=== PATIENT | male | born 1980 | race Caucasian/White ===

== ENCOUNTER 2017-08-16 15:30 | Inpatient (IN) | payer OTHER ==
[2017-08-16 17:17] VITALS: BMI 27.1
--- NOTE | 2017-08-16 20:20 | HP ---
Admission [facility] Chief Complaint: Benzodiazepine dependence seeking admission to rehab Allergies/Adverse Reactions: Allergies Allergy/AdvReac Type Severity Reaction Status Date / Time acetaminophen [From Tylenol] Allergy Severe Verified 08/16/17 18:40 Fish Containing Products Allergy Severe Swelling Verified 08/16/17 18:40 buprenorphine [From Suboxone] Allergy Intermediate Verified 08/16/17 18:40 naloxone [From Suboxone] Allergy Intermediate Verified 08/16/17 18:40 History of Present Illness: 37 years old with 20 years history of benzodiazepine dependence is seeking admission to detox. Patient has been to previous detox at [facility] in [facility] and reports 18 months of sobriety. She has medical history of Multiple Sclerosis , GERD, anxiety and depression. He denies suicide attempt and suicidal ideation at this time. Patient is on methadone 70 mg at [facility]. LDM is today. Dose is to be confirmed by the nurse. This is first admission to [facility]. Exam Limitations: No Limitations - Ebola screening Have you traveled outside of the country in the last 21 days: No Have you had contact with anyone from an Ebola affected area: No Have you been sick,other than usual withdrawal symptoms: No Do you have a fever: No - Review of Systems Constitutional: No Symptoms Reported EENT: reports: No Symptoms Reported Respiratory: reports: No Symptoms reported Cardiac: reports: No Symptoms Reported GI: reports: No Symptoms Reported : reports: No Symptoms Reported Musculoskeletal: reports: No Symptoms Reported Integumentary: reports: No Symptoms Reported Neuro: reports: Tremors Endocrine: reports: No Symptoms Reported Hematology: reports: No Symptoms Reported Psychiatric: reports: No Sypmtoms Reported, Orientated x3 Other Systems: Reviewed and Negative Patient History - Patient Medical History Hx Anemia: No Hx Asthma: No Hx Chronic Obstructive Pulmonary Disease (COPD): No Hx Cancer: No Hx Cardiac Disorders: No Hx Congestive Heart Failure: No Hx Hypertension: No Hx Hypercholesterolemia: No Hx Pacemaker: No HX Cerebrovascular Accident: No Hx Seizures: No Hx Dementia: No Hx Diabetes: No Hx Gastrointestinal Disorders: Yes (GERD - not on medication) Hx Liver Disease: No Hx Genitourinary Disorders: No Hx Sexually Transmitted Disorders: No Hx Renal Disease (ESRD): No Hx Thyroid Disease: No Hx Human Immunodeficiency Virus (HIV): No (Negative 2016) Hx Hepatitis C: No Hx Depression: Yes (Wellbutrin) Hx Suicide Attempt: No (Denies suicide attempt and suicidal ideation at this time) Hx Bipolar Disorder: No Hx Schizophrenia: No Other Medical History: Anxiety, Mulltiple Sclerosis - Not on medication - Patient Surgical History Past Surgical History: No Hx Neurologic Surgery: No Hx Cataract Extraction: No Hx Cardiac Surgery: No Hx Lung Surgery: No Hx Abdominal Surgery: No Hx Appendectomy: No Hx Cholecystectomy: No Hx Genitourinary Surgery: No Hx Orthopedic Surgery: No Other Surgical History: Reconstructive surgery to face, arm and elbow in 1999, Anesthesia Reaction: No - PPD History Previous Implant?: Yes (PPD POSITIVE) Documented Results: Positive w/o proof Implanted On Prior [facility] Admission?: No PPD to be Administered?: No - Reproductive History Patient is a Female of Child Bearing Age (11 -55 yrs old): No (MALE) - Smoking Cessation Smoking history: Current every day smoker Have you smoked in the past 12 months: Yes Aproximately how many cigarettes per day: 5 Hx Chewing Tobacco Use: No Initiated information on smoking cessation: Yes 'Breaking Loose' booklet given: 08/16/17 - Substance & Tx. History Hx Alcohol Use: No Hx Substance Use: Yes Substance Use Type: Cocaine, Heroin, Marijuana, Tranquilizers Hx Substance Use Treatment: Yes ([facility] in [facility]) - Substances Abused Benzodiazepine (Klonopin) Route: Oral Frequency: Daily Amount used: 8-14MG Age of first use: 19 Date of Last Use: 08/16/17 Marijuana/Hashish Route: Smoking Frequency: Daily Amount used: $20 Age of first use: 9 Date of Last Use: 08/16/17 Family Disease History - Family Disease History Family History: Denies (Patient reports that he was adopted) Admission Physical Exam BHS - Vital Signs Vital Signs: Vital Signs - 24 hr 08/16/17 17:12 Temperature 97.2 F L Pulse Rate 98 H Respiratory 18 Rate Blood Pressure 142/84 - Physical General Appearance: Yes: Nourished, Appropriately Dressed HEENTM: Yes: EOMI, Normal ENT Inspection, Normocephalic, Normal Voice, ODALYS Respiratory: Yes: Lungs Clear, Normal Breath Sounds, No Respiratory Distress Neck: Yes: Supple Breast: Yes: Breast Exam Deferred Cardiology: Yes: Regular Rhythm, Regular Rate Abdominal: Yes: Normal Bowel Sounds, Soft Genitourinary: Yes: Within Normal Limits Back: Yes: Normal Inspection Musculoskeletal: Yes: Within Normal Limits Extremities: Yes: Normal Inspection Neurological: Yes: Alert, Normal Mood/Affect Integumentary: Yes: Warm Lymphatic: Yes: Within Normal Limits - Diagnostic (1) Nicotine dependence Current Visit: Yes Status: Chronic (2) Multiple sclerosis Current Visit: Yes Status: Chronic (3) Depression Current Visit: Yes Status: Chronic Qualifiers: Depression Type: unspecified Qualified Code(s): F32.9 - Major depressive disorder, single episode, unspecified (4) Anxiety Current Visit: Yes Status: Chronic (5) GERD (gastroesophageal reflux disease) Current Visit: Yes Status: Chronic (6) Benzodiazepine dependence Current Visit: Yes Status: Chronic Cleared for Admission [facility] - Detox or Rehab [facility] Level of Care: Observation Bed Claeared for Rehab Admission: Yes [facility] Breath Alcohol Content Breath Alcohol Content: 0 Urine Drug Screen - Results Drug Screen Negative: No Urine Drug Screen Results: THC-Marijuana, TAMARA-Cocaine, BZO-Benzodiazepines, MTD- Methadone
[2017-08-16] MEDS ORDERED: diazePAM 5 MG TABLET PO PRN (20:31)
[2017-08-16] MEDS ORDERED: IBUPROFEN 400 MG TABLET (FP) PO PRN (20:31)
[2017-08-16] MEDS ORDERED: MENTHOL/PHENOL 1 EACH UD MM PRN ×2 (20:31→23:05)
[2017-08-16] MEDS ORDERED: NICOTINE POLACRILEX 2 MG GUM BUC PRN (20:31)
[2017-08-16] MEDS ORDERED: LOPERAMIDE HCL 2 MG CAPSULE PO PRN ×2 (20:31→23:05)
[2017-08-16] MEDS ORDERED: guaiFENesin/D-METHORPHAN HB 10 ML UNIT-DOSE CUPS PO PRN ×2 (20:31→23:05)
[2017-08-16] MEDS ORDERED: MAGNESIUM HYDROX 2400MG/30ML ORAL SUSPENSION 30 ML CUP PO PRN ×2 (20:31→23:05)
[2017-08-16] MEDS ORDERED: MAGNESIUM CITRATE 300 ML BOTTLE PO PRN ×2 (20:31→23:05)
[2017-08-16] MEDS ORDERED: P-EPHED 60MG/TRIPROLIDI 2.5MG TABLET PO PRN ×2 (20:31→23:05)
[2017-08-16] MEDS ORDERED: ACETAMINOPHEN 325 MG TABLET (FP) PO PRN ×2 (20:31→23:05)
[2017-08-16] MEDS ORDERED: MAG HYDROX/AL HYDROX/SIMETH 30 ML UNIT-DOSE CUP PO PRN ×2 (20:31→23:05)
[2017-08-16] MEDS ORDERED: diazePAM 5 MG TABLET PO ONE (21:00)
[2017-08-16] MEDS ORDERED: THIAMINE HCL 100 MG TABLET (FP) PO SCH (22:00)
[2017-08-16] MEDS ORDERED: diazePAM 5 MG TABLET PO SCH (22:00)
[2017-08-16] MEDS ORDERED: MELATONIN 5 MG TABLETS PO PRN ×2 (22:00)
[2017-08-16] MEDS ORDERED: hydrOXYzine PAMOATE 50 MG CAPSULE (FP) PO ONE (23:45)
--- NOTE | 2017-08-17 09:02 | EKG ---
Test Reason : Blood Pressure : / mmHG Vent. Rate : 083 BPM Atrial Rate : 083 BPM P-R Int : 152 ms QRS Dur : 092 ms QT Int : 416 ms P-R-T Axes : 067 064 042 degrees QTc Int : 488 ms NORMAL SINUS RHYTHM PROLONGED QT ABNORMAL ECG NO PREVIOUS ECGS AVAILABLE Confirmed by CATIE BLEDSOE, ALEN ([id number]) on 08/17/2017 9:01:21 AM Referred By: Confirmed By:ALEN HADDAD MD
[2017-08-17] MEDS ORDERED: NICOTINE 14 MG/24 HOURS TOPICAL PATCH TD SCH (10:00)
[2017-08-17] MEDS ORDERED: PRENATAL VITAMINS W/ FOLIC ACID TABLET (FP) PO SCH (10:00)
--- NOTE | 2017-08-17 11:07 | PN ---
[facility] Progress Note Note: Pt states that he needs to be detoxed from Benzo and that he is in withdrawal from Benzo. Urine was positive at admission for benzo and methadone. Vital Signs - 24 hr 08/16/17 08/16/17 08/17/17 17:12 23:00 03:30 Temperature 97.2 F L 98.1 F Pulse Rate 98 H 86 Respiratory 18 18 18 Rate Blood Pressure 142/84 127/78 08/17/17 06:43 Temperature 98.3 F Pulse Rate 89 Respiratory 18 Rate Blood Pressure 111/53 CIWA score of 10. Pt is transferred to detox for Benzo taper and will start methadone at 30mg- pt is in an MAT- 70mg/day. Will get confirmation tomorrow.
[2017-08-17] MEDS ORDERED: diazePAM 5 MG TABLET PO ONE (11:28)
--- NOTE | 2017-08-17 11:45 | PN ---
[facility] CIWA - CIWA Score Nausea/Vomitin-No Nausea/No Vomiting Muscle Tremors: None Anxiety: 4-Mod. Anxious/Guarded Agitation: 4-Moderately Restless Paroxysmal Sweats: 2 Orientation: 0-Oriented Tacttile Disturbances: 0-None Auditory Disturbances: 0-None Visual Disturbances: 0-None Headache: 0-None Present CIWA-Ar Total Score: 10
[2017-08-17] MEDS ORDERED: METHADONE HCL 10 MG TABLET (FOR DETOX USE ONLY) PO ONE (11:48)
[2017-08-17] MEDS: PRENATAL VITAMINS W/ FOLIC ACID TABLET (FP) PO SCH (11:51)
[2017-08-17] MEDS: diazePAM 5 MG TABLET PO SCH ×2 (13:15→22:01)
[2017-08-17] MEDS: diazePAM 5 MG TABLET PO PRN ×2 (15:31→19:22)
--- NOTE | 2017-08-17 16:08 | PN ---
[facility] Progress Note Note: Received patient from Rehab (patient originally admitted for Rehab, then transferred to Detox unit due to the fact that he is currently experiencing significant withdrawal symptoms). VS Stable. Patient reports Tremors, Body Aches , Anxiety, Sweating, and Interrupted Sleep. Patient A & O X 3, observed ambulating on unit unassisted. Patient being treated with Valium Detox Regimen. Cuba Ptahak NP
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
[2017-08-17 17:36] LABS: URINE APPEARANCE CLEAR; URINE BILIRUBIN NEGATIVE (<2.0 mg/dL); URINE COLOR YELLOW; URINE GLUCOSE (UA) NEGATIVE (NEGATIVE); URINE KETONE NEGATIVE (NEGATIVE); URINE LEUK ESTERASE NEGATIVE (NEGATIVE); URINE NITRITE NEGATIVE (NEGATIVE); URINE PROTEIN NEGATIVE (NEGATIVE); URINE UROBILINOGEN NEGATIVE mg/dL (0.2-1.0)
[2017-08-17] MEDS: hydrOXYzine PAMOATE 50 MG CAPSULE (FP) PO PRN (17:50)
[2017-08-17] MEDS: THIAMINE HCL 100 MG TABLET (FP) PO SCH (22:00)
[2017-08-17] MEDS: ZOLPIDEM TARTRATE 10 MG TABLET (PARK CARE ONLY) PO PRN (22:00)
[2017-08-18] MEDS: diazePAM 5 MG TABLET PO PRN ×4 (00:35→20:21)
[2017-08-18] MEDS: hydrOXYzine PAMOATE 50 MG CAPSULE (FP) PO PRN (03:10)
[2017-08-18] MEDS: diazePAM 5 MG TABLET PO SCH ×3 (06:52→22:07)
[2017-08-18] MEDS ORDERED: diazePAM 5 MG TABLET PO SCH (10:00)
[2017-08-18] MEDS: PRENATAL VITAMINS W/ FOLIC ACID TABLET (FP) PO SCH (10:17)
[2017-08-18] MEDS ORDERED: METHADONE HCL 10 MG TABLET PO SCH (11:45)
--- NOTE | 2017-08-18 11:47 | PN ---
S CIWA - CIWA Score Nausea/Vomitin-No Nausea/No Vomiting Muscle Tremors: 3 Anxiety: 5 Agitation: 5 Paroxysmal Sweats: 3 Orientation: 0-Oriented Tacttile Disturbances: 1-Very Mild Itch/Numbness Auditory Disturbances: 0-None Visual Disturbances: 0-None Headache: 0-None Present CIWA-Ar Total Score: 17 [facility] Progress Note (SOAP) Subjective: Body Aches, Sweating, Anxious, Agitated. Objective: PATIENT A & O X 3, OBSERVED AMBULATING ON UNIT. NO ACUTE DISTRESS. 08/18/17 11:44 Vital Signs Temperature 97 F L 08/18/17 09:25 Pulse Rate 86 08/18/17 09:25 Respiratory Rate 20 08/18/17 09:25 Blood Pressure 151/81 08/18/17 09:25 O2 Sat by Pulse Oximetry (%) Laboratory Tests 08/17/17 16:45 Urine Color Yellow Urine Appearance Clear Urine pH 5.0 Ur Specific [place] 1.024 Urine Protein Negative Urine Glucose (UA) Negative Urine Ketones Negative Urine Blood Negative Urine Nitrite Negative Urine Bilirubin Negative Urine Urobilinogen Negative Ur Leukocyte Esterase Negative UA RESULTS NOTED. CBC, CMP, RPR RESULTS PENDING. Assessment: 08/18/17 11:46 WITHDRAWAL SYMPTOMS. Plan: CONTINUE DETOX. CLONIDINE, 0.1 MG PO X 1 FOR SEVERE WITHDRAWAL SYMPTOMS AND FOR ELEVATED BP.
[2017-08-18] MEDS ORDERED: cloNIDine HCL 0.1 MG TABLET PO ONE (11:55)
[2017-08-18] MEDS ORDERED: METHADONE HCL 10 MG TABLET ONE (12:20)
[2017-08-18] MEDS ORDERED: METHADONE HCL 40 MG DISPERSABLE TABLET ONE (12:20)
[2017-08-18] MEDS: METHADONE 40 MG, METHADONE 30 MG PO SCH (12:22)
[2017-08-18 15:57] LABS: ALBUMIN 3.6 g/dl (3.4-5.0); ALK PHOS 86 U/L (45-117); ANION GAP 7 (8-16); BILIRUBIN,TOTAL 0.5 mg/dL (0.2-1.0); BLOOD UREA NITROGEN 22 mg/dL (7-18); CALCIUM 8.7 mg/dL (8.5-10.1); CHLORIDE 104 mmol/L (98-107); CO2 30 mmol/L (21-32); CREATININE 0.9 mg/dL (0.7-1.3); GLUCOSE,RANDOM 83 mg/dL (74-106); POTASSIUM 4.2 mmol/L (3.5-5.1); SGOT/AST 30 U/L (15-37); SGPT/ALT 51 U/L (12-78); SODIUM 141 mmol/L (136-145); TOT PROT 7.2 g/dl (6.4-8.2)
[2017-08-18 16:02] LABS: HEMATOCRIT 39.8 % (35.4-49); HEMOGLOBIN 13.2 GM/dL (11.7-16.9); MCH 29.6 pg (25.7-33.7); MCHC 33.1 g/dl (32.0-35.9); MEAN CELL VOLUME 89.5 fl (80-96); PLATELET COUNT 274 K/MM3 (134-434); RBC 4.45 M/mm3 (4.00-5.60); RDW 13.2 % (11.9-15.9); WHITE BLOOD COUNT 4.4 K/mm3 (4.0-10.0)
[2017-08-18] MEDS: THIAMINE HCL 100 MG TABLET (FP) PO SCH (22:07)
[2017-08-18] MEDS: ZOLPIDEM TARTRATE 10 MG TABLET (PARK CARE ONLY) PO PRN (22:08)
--- NOTE | 2017-08-19 | DS ---
[facility] Detox Discharge Summary Admission Date: 08/16/17 Discharge Date: 08/19/17 - History Present History: Sedative Dependence - Physical Exam Results Vital Signs: Vital Signs Temperature 97 F L 08/18/17 22:03 Pulse Rate 82 08/18/17 22:03 Respiratory Rate 18 08/18/17 22:03 Blood Pressure 115/66 08/18/17 22:03 O2 Sat by Pulse Oximetry (%) Pertinent Admission Physical Exam Findings: Laboratory Last Values WBC 4.4 K/mm3 (4.0-10.0) 08/18/17 08:50 RBC 4.45 M/mm3 (4.00-5.60) 08/18/17 08:50 Hgb 13.2 GM/dL (11.7-16.9) 08/18/17 08:50 Hct 39.8 % (35.4-49) 08/18/17 08:50 MCV 89.5 fl (80-96) 08/18/17 08:50 MCH 29.6 pg (25.7-33.7) 08/18/17 08:50 MCHC 33.1 g/dl (32.0-35.9) 08/18/17 08:50 RDW 13.2 % (11.9-15.9) 08/18/17 08:50 Plt Count 274 K/MM3 (134-434) 08/18/17 08:50 MPV 8.0 fl (7.5-11.1) 08/18/17 08:50 Sodium 141 mmol/L (136-145) 08/18/17 08:50 Potassium 4.2 mmol/L (3.5-5.1) 08/18/17 08:50 Chloride 104 mmol/L (98-107) 08/18/17 08:50 Carbon Dioxide 30 mmol/L (21-32) 08/18/17 08:50 Anion Gap 7 (8-16) L 08/18/17 08:50 BUN 22 mg/dL (7-18) H 08/18/17 08:50 Creatinine 0.9 mg/dL (0.7-1.3) 08/18/17 08:50 Creat Clearance w eGFR > 60 (>60) 08/18/17 08:50 Random Glucose 83 mg/dL (74-106) 08/18/17 08:50 Calcium 8.7 mg/dL (8.5-10.1) 08/18/17 08:50 Total Bilirubin 0.5 mg/dL (0.2-1.0) 08/18/17 08:50 AST 30 U/L (15-37) 08/18/17 08:50 ALT 51 U/L (12-78) 08/18/17 08:50 Alkaline Phosphatase 86 U/L (45-117) 08/18/17 08:50 Total Protein 7.2 g/dl (6.4-8.2) 08/18/17 08:50 Albumin 3.6 g/dl (3.4-5.0) 08/18/17 08:50 Urine Color Yellow 08/17/17 16:45 Urine Appearance Clear 08/17/17 16:45 Urine pH 5.0 (5.0-8.0) 08/17/17 16:45 Ur Specific [place] 1.024 (1.001-1.035) 08/17/17 16:45 Urine Protein Negative (NEGATIVE) 08/17/17 16:45 Urine Glucose (UA) Negative (NEGATIVE) 08/17/17 16:45 Urine Ketones Negative (NEGATIVE) 08/17/17 16:45 Urine Blood Negative (NEGATIVE) 08/17/17 16:45 Urine Nitrite Negative (NEGATIVE) 08/17/17 16:45 Urine Bilirubin Negative (<2.0 mg/dL) 08/17/17 16:45 Urine Urobilinogen Negative mg/dL (0.2-1.0) 08/17/17 16:45 Ur Leukocyte Esterase Negative (NEGATIVE) 08/17/17 16:45 Labs noted - Medication Discharge Medications: Ambulatory Orders Bupropion HCl [Wellbutrin Xl -] 150 mg PO HS 08/16/17 Bupropion HCl [Wellbutrin Xl -] 300 mg PO DAILY 08/16/17 Methadone [Dolophine -] 70 mg PO DAILY 08/16/17 - Diagnosis (1) Sedative, hypnotic or anxiolytic dependence with withdrawal, uncomplicated Current Visit: Yes Status: Chronic (2) GERD (gastroesophageal reflux disease) Current Visit: Yes Status: Chronic Qualifiers: Esophagitis presence: esophagitis presence not specified Qualified Code(s) : K21.9 - Gastro-esophageal reflux disease without esophagitis (3) Multiple sclerosis Current Visit: Yes Status: Chronic (4) Nicotine dependence Current Visit: Yes Status: Chronic Qualifiers: Nicotine product type: cigarettes Substance use status: uncomplicated Qualified Code(s): F17.210 - Nicotine dependence, cigarettes, uncomplicated - AMA Did Patient Leave Against Medical Advice: Yes
[2017-08-19] MEDS: diazePAM 5 MG TABLET PO PRN ×5 (00:34→20:51)
[2017-08-19] MEDS ORDERED: diphenhydrAMINE HCL 25 MG CAPSULE (FP) PO ONE (00:47)
[2017-08-19] MEDS: IBUPROFEN 400 MG TABLET (FP) PO PRN ×2 (02:34→22:55)
[2017-08-19] MEDS ORDERED: METHADONE HCL 10 MG TABLET ONE (05:03)
[2017-08-19] MEDS ORDERED: METHADONE HCL 40 MG DISPERSABLE TABLET ONE (05:04)
[2017-08-19] MEDS: METHADONE 40 MG, METHADONE 30 MG PO SCH (06:06)
[2017-08-19] MEDS: diazePAM 5 MG TABLET PO SCH ×2 (10:46→22:27)
[2017-08-19] MEDS: PRENATAL VITAMINS W/ FOLIC ACID TABLET (FP) PO SCH (10:46)
--- NOTE | 2017-08-19 13:59 | PN ---
[facility] CIWA - CIWA Score Nausea/Vomitin-No Nausea/No Vomiting Muscle Tremors: None Anxiety: 5 Agitation: 4-Moderately Restless Paroxysmal Sweats: 3 Orientation: 0-Oriented Tacttile Disturbances: 2-Mild Itch/Numbness/Burn Auditory Disturbances: 0-None Visual Disturbances: 2-Mild Sensitivity Headache: 0-None Present CIWA-Ar Total Score: 16 [facility] Progress Note (SOAP) Subjective: Sweating, Body Aches, Anxious, Agitated. Objective: PATIENT A & O X 3, OBSERVED AMBULATING ON UNIT. NO ACUTE DISTRESS. 08/19/17 14:01 Vital Signs Temperature 96.4 F L 08/19/17 09:12 Pulse Rate 89 08/19/17 09:12 Respiratory Rate 16 08/19/17 09:12 Blood Pressure 126/83 08/19/17 09:12 O2 Sat by Pulse Oximetry (%) Laboratory Tests 08/17/17 08/18/17 08/18/17 16:45 08:50 08:50 WBC 4.4 RBC 4.45 Hgb 13.2 Hct 39.8 MCV 89.5 MCH 29.6 MCHC 33.1 RDW 13.2 Plt Count 274 MPV 8.0 Sodium 141 Potassium 4.2 Chloride 104 Carbon Dioxide 30 Anion Gap 7 L BUN 22 H Creatinine 0.9 Creat Clearance w eGFR > 60 Random Glucose 83 Calcium 8.7 Total Bilirubin 0.5 AST 30 ALT 51 Alkaline Phosphatase 86 Total Protein 7.2 Albumin 3.6 Urine Color Yellow Urine Appearance Clear Urine pH 5.0 Ur Specific [place] 1.024 Urine Protein Negative Urine Glucose (UA) Negative Urine Ketones Negative Urine Blood Negative Urine Nitrite Negative Urine Bilirubin Negative Urine Urobilinogen Negative Ur Leukocyte Esterase Negative RPR Titer 08/18/17 08:50 WBC RBC Hgb Hct MCV MCH MCHC RDW Plt Count MPV Sodium Potassium Chloride Carbon Dioxide Anion Gap BUN Creatinine Creat Clearance w eGFR Random Glucose Calcium Total Bilirubin AST ALT Alkaline Phosphatase Total Protein Albumin Urine Color Urine Appearance Urine pH Ur Specific [place] Urine Protein Urine Glucose (UA) Urine Ketones Urine Blood Urine Nitrite Urine Bilirubin Urine Urobilinogen Ur Leukocyte Esterase RPR Titer Nonreactive LABS NOTED. HCV AB RESULT PENDING. 08/19/17 14:01 Assessment: 08/19/17 14:01 WITHDRAWAL SYMPTOMS. Plan: CONTINUE DETOX. INCREASE DAILY PO FLUID INTAKE.
[2017-08-19] MEDS: ZOLPIDEM TARTRATE 10 MG TABLET (PARK CARE ONLY) PO PRN (22:27)
[2017-08-19] MEDS: THIAMINE HCL 100 MG TABLET (FP) PO SCH (22:27)
[2017-08-20] MEDS: diazePAM 5 MG TABLET PO PRN ×2 (02:00→06:32)
[2017-08-20] MEDS ORDERED: METHADONE HCL 10 MG TABLET ONE (03:30)
[2017-08-20] MEDS ORDERED: METHADONE HCL 40 MG DISPERSABLE TABLET ONE (03:30)
[2017-08-20] MEDS: METHADONE 40 MG, METHADONE 30 MG PO SCH (05:31)
[2017-08-20] MEDS ORDERED: diazePAM 5 MG TABLET PO SCH (10:00)
[2017-08-20] MEDS: PRENATAL VITAMINS W/ FOLIC ACID TABLET (FP) PO SCH (10:13)
[2017-08-20] MEDS: diazePAM 5 MG TABLET PO SCH (10:13)
[2017-08-20 11:00] VITALS: BP 108/71; PULSE 89; TEMP 97
--- NOTE | 2017-08-20 11:15 | PN ---
[facility] Progress Note Note: Psychiatry Attending's note : Called to write script for wellbutrin. Chart reviewed.Medications revisited.Met with patient. Mr Soliz endorses favorable response to the medication. Willing to continue same regimen as an outpatient.Doing well. No side effects reported.Patient made aware of risk of seizures. Script for wellbutrin 150 mg po daily # 30 tablets. [facility]
--- NOTE | 2017-08-20 15:33 | PN ---
[facility] Progress Note (SOAP) Subjective: Body Aches, Sweating, Anxious. Objective: PATIENT A & O X 3, OBSERVED AMBULATING ON UNIT. NO ACUTE DISTRESS. 08/20/17 15:32 Vital Signs Temperature 97.0 F L 08/20/17 10:59 Pulse Rate 89 08/20/17 10:59 Respiratory Rate 20 08/20/17 10:59 Blood Pressure 108/71 08/20/17 10:59 O2 Sat by Pulse Oximetry (%) Laboratory Tests 08/17/17 08/18/17 08/18/17 16:45 08:50 08:50 WBC 4.4 RBC 4.45 Hgb 13.2 Hct 39.8 MCV 89.5 MCH 29.6 MCHC 33.1 RDW 13.2 Plt Count 274 MPV 8.0 Sodium 141 Potassium 4.2 Chloride 104 Carbon Dioxide 30 Anion Gap 7 L BUN 22 H Creatinine 0.9 Creat Clearance w eGFR > 60 Random Glucose 83 Calcium 8.7 Total Bilirubin 0.5 AST 30 ALT 51 Alkaline Phosphatase 86 Total Protein 7.2 Albumin 3.6 Urine Color Yellow Urine Appearance Clear Urine pH 5.0 Ur Specific [place] 1.024 Urine Protein Negative Urine Glucose (UA) Negative Urine Ketones Negative Urine Blood Negative Urine Nitrite Negative Urine Bilirubin Negative Urine Urobilinogen Negative Ur Leukocyte Esterase Negative RPR Titer Hep C Ab Diagnostic Liver Fibrosis Interp 08/18/17 08/19/17 08:50 08:00 WBC RBC Hgb Hct MCV MCH MCHC RDW Plt Count MPV Sodium Potassium Chloride Carbon Dioxide Anion Gap BUN Creatinine Creat Clearance w eGFR Random Glucose Calcium Total Bilirubin AST ALT Alkaline Phosphatase Total Protein Albumin Urine Color Urine Appearance Urine pH Ur Specific [place] Urine Protein Urine Glucose (UA) Urine Ketones Urine Blood Urine Nitrite Urine Bilirubin Urine Urobilinogen Ur Leukocyte Esterase RPR Titer Nonreactive Hep C Ab Diagnostic <0.1 Liver Fibrosis Interp LABS NOTED. Assessment: 08/20/17 15:32 WITHDRAWAL SYMPTOMS. Plan: CONTINUE DETOX.
--- NOTE | 2017-08-20 15:37 | DS ---
[facility] Detox Discharge Summary Admission Date: 08/16/17 Discharge Date: 08/20/17 - History Present History: Sedative Dependence Additional Comments: PATIENT DOES NOT WISH TO STAY TO COMPLETE DETOX REGIMEN. RISKS OF LEAVING DETOX UNIT AGAINST MEDICAL ADVICE AND PRIOR TO COMPLETION OF DETOX REGIMEN EXPLAINED TO PATIENT. PATIENT ADVISED TO GO IMMEDIATELY TO NEAREST ER SHOULD ANY INTOLERABLE DETOX SYMPTOMS DEVELOP AT ANY TIME. PATIENT LEFT DETOX UNIT IN STABLE MEDICAL CONDITION. Pertinent Past History: History of Multiple Sclerosis, G.E.R.D., Nicotine dependence, Insomnia, Anxiety , MMTP, Depression. - Physical Exam Results Vital Signs: Vital Signs Temperature 97.0 F L 08/20/17 10:59 Pulse Rate 89 08/20/17 10:59 Respiratory Rate 20 08/20/17 10:59 Blood Pressure 108/71 08/20/17 10:59 O2 Sat by Pulse Oximetry (%) Pertinent Admission Physical Exam Findings: WITHDRAWAL SYMPTOMS. Laboratory Tests 08/17/17 08/18/17 08/18/17 16:45 08:50 08:50 WBC 4.4 RBC 4.45 Hgb 13.2 Hct 39.8 MCV 89.5 MCH 29.6 MCHC 33.1 RDW 13.2 Plt Count 274 MPV 8.0 Sodium 141 Potassium 4.2 Chloride 104 Carbon Dioxide 30 Anion Gap 7 L BUN 22 H Creatinine 0.9 Creat Clearance w eGFR > 60 Random Glucose 83 Calcium 8.7 Total Bilirubin 0.5 AST 30 ALT 51 Alkaline Phosphatase 86 Total Protein 7.2 Albumin 3.6 Urine Color Yellow Urine Appearance Clear Urine pH 5.0 Ur Specific [place] 1.024 Urine Protein Negative Urine Glucose (UA) Negative Urine Ketones Negative Urine Blood Negative Urine Nitrite Negative Urine Bilirubin Negative Urine Urobilinogen Negative Ur Leukocyte Esterase Negative RPR Titer Hep C Ab Diagnostic Liver Fibrosis Interp 08/18/17 08/19/17 08:50 08:00 WBC RBC Hgb Hct MCV MCH MCHC RDW Plt Count MPV Sodium Potassium Chloride Carbon Dioxide Anion Gap BUN Creatinine Creat Clearance w eGFR Random Glucose Calcium Total Bilirubin AST ALT Alkaline Phosphatase Total Protein Albumin Urine Color Urine Appearance Urine pH Ur Specific [place] Urine Protein Urine Glucose (UA) Urine Ketones Urine Blood Urine Nitrite Urine Bilirubin Urine Urobilinogen Ur Leukocyte Esterase RPR Titer Nonreactive Hep C Ab Diagnostic <0.1 Liver Fibrosis Interp LABS NOTED. - Treatment Hospital Course: Detoxed Safely - Medication Discharge Medications: Ambulatory Orders Bupropion HCl [Wellbutrin Xl -] 150 mg PO HS 08/16/17 Bupropion HCl [Wellbutrin Xl -] 300 mg PO DAILY 08/16/17 Bupropion HCl [Wellbutrin Xl -] 150 mg PO DAILY #30 tab.sr.24h 08/20/17 - Diagnosis (1) Sedative, hypnotic or anxiolytic dependence with withdrawal, uncomplicated Status: Chronic (2) Multiple sclerosis Status: Chronic (3) Nicotine dependence Status: Chronic Qualifiers: Nicotine product type: cigarettes Substance use status: uncomplicated Qualified Code(s): F17.210 - Nicotine dependence, cigarettes, uncomplicated (4) Anxiety Status: Chronic (5) Depression Status: Chronic Qualifiers: Depression Type: unspecified Qualified Code(s): F32.9 - Major depressive disorder, single episode, unspecified (6) GERD (gastroesophageal reflux disease) Status: Chronic Qualifiers: Esophagitis presence: esophagitis presence not specified Qualified Code(s) : K21.9 - Gastro-esophageal reflux disease without esophagitis (7) Substance induced mood disorder Status: Acute (8) Substance-induced sleep disorder Status: Acute - AMA Did Patient Leave Against Medical Advice: Yes (PATIENT DID NOT WISH TO REMAIN TO COMPLETE DETOX REGIMEN.)
[2017-08-21] MEDS ORDERED: diazePAM 5 MG TABLET PO SCH (10:00)
--- NOTE | 2017-08-21 10:19 | EKG ---
Test Reason : Blood Pressure : / mmHG Vent. Rate : 082 BPM Atrial Rate : 082 BPM P-R Int : 136 ms QRS Dur : 092 ms QT Int : 400 ms P-R-T Axes : 058 062 030 degrees QTc Int : 467 ms NORMAL SINUS RHYTHM NORMAL ECG WHEN COMPARED WITH ECG OF 16-AUG-2017 22:16, NO SIGNIFICANT CHANGE WAS FOUND Confirmed by ROBERT LOZA MD ([id number]) on 08/21/2017 10:19:12 AM Referred By: Confirmed By:ROBERT LOZA MD
== END 2017-08-20 12:46 | disposition left against medical advice (07) | DRG 770 ==
LOC: YASAS 15:30 → Y3W 18:07 → Y3N 08-17 11:26
PROVIDERS: ADMIT Psychiatry & Neurology Psychiatry; ATTEND Surgery
PROC: HZ2ZZZZ Detoxification Services for Substance Abuse Treatment (ICD-10-PCS; principal; 2017-08-16)
DX: F13.230 Sedative, hypnotic or anxiolytic dependence with withdrawal, uncomplicated (principal); F17.210 Nicotine dependence, cigarettes, uncomplicated; F41.9 Anxiety disorder, unspecified; F32.9 Major depressive disorder, single episode, unspecified; F19.24 Other psychoactive substance dependence with psychoactive substance-induced mood disorder; F19.282 Other psychoactive substance dependence with psychoactive substance-induced sleep disorder; K21.9 Gastro-esophageal reflux disease without esophagitis; G35 Multiple sclerosis; Z88.8 Allergy status to other drugs, medicaments and biological substances; Z91.018 Allergy to other foods
CPT/HCPCS: 36415; 71046-TC-FY; 80053; 81003; 85027; 86593; 86803; 93005; 93010; J0735

== ENCOUNTER 2017-08-22 17:46 | Emergency (ER) | payer OTHER ==
[2017-08-22 18:13] VITALS: BP 109/69; PULSE 95; TEMP 98.2; BMI 25.9
[2017-08-22] MEDS ORDERED: ASPIRIN 325 MG TABLET PO ONE (22:53)
--- NOTE | 2017-08-22 22:53 | PDOC ---
History of Present Illness - General Chief Complaint: Chest Pain Stated Complaint: CHEST PAIN Time Seen by Provider: 08/22/17 22:29 History Source: Patient Exam Limitations: No Limitations - History of Present Illness Initial Comments: 08/22/17 22:51 37-year-old male with past medical history of MS polysubstance abuse who presents emergency Department with left-sided chest pain starting at approximately 3:00 this afternoon. Patient states he presented to [address] [place] [address] for detox today but was told he could not be admitted as he went AMA last week from detox. Patient states chest pain started while he was attempting to admit himself for detox. Denies any exertional chest pain. Patient also reports right flank pain starting at the same time. He denies any shortness of breath, dizziness, headaches, nausea, vomiting, dysuria, hematuria. Past History - Past Medical History Allergies/Adverse Reactions: Allergies Allergy/AdvReac Type Severity Reaction Status Date / Time acetaminophen [From Tylenol] Allergy Severe Verified 08/22/17 18:10 Fish Containing Products Allergy Severe Swelling Verified 08/22/17 18:10 buprenorphine [From Suboxone] Allergy Intermediate Verified 08/22/17 18:10 naloxone [From Suboxone] Allergy Intermediate Verified 08/22/17 18:10 Home Medications: Ambulatory Orders Unobtainable 08/23/17 Anemia: No Asthma: No Cancer: No Cardiac Disorders: No CVA: No COPD: No CHF: No Dementia: No Diabetes: No GI Disorders: Yes (GERD - not on medication) Disorders: No HTN: No Hypercholesterolemia: No Kidney Stones: No Liver Disease: No Seizures: No Thyroid Disease: No - Surgical History Abdominal Surgery: No Appendectomy: No Cardiac Surgery: No Cholecystectomy: No Lung Surgery: No Neurologic Surgery: No Orthopedic Surgery: No - Reproductive History Testicular Surgery: No - Suicide/Smoking/Psychosocial Hx Smoking History: Current some day smoker Have you smoked in the past 12 months: Yes Number of Cigarettes Smoked Daily: 5 Information on smoking cessation initiated: No 'Breaking Loose' booklet given: 08/16/17 Hx Alcohol Use: No Drug/Substance Use Hx: Yes Substance Use Type: Cocaine, Heroin, Marijuana, Tranquilizers Hx Substance Use Treatment: Yes ([facility] in [facility]) Cardiac Specific PMH - Complaint Specific PMHX Pacemaker: No Review of Systems - Review of Systems Able to Perform ROS?: Yes Is the patient limited Urdu proficient: No Constitutional: No: Symptoms Reported HEENTM: No: Symptoms Reported Respiratory: No: Symptoms reported Cardiac (ROS): Yes: See HPI ABD/GI: No: Symptoms Reported : Yes: See HPI Musculoskeletal: No: Symptoms Reported Integumentary: No: Symptoms Reported Neurological: No: Symptoms reported Endocrine: No: Symptoms Reported Hematologic/Lymphatic: No: Symptoms Reported *Physical Exam - Vital Signs Last Vital Signs Temp Pulse Resp BP Pulse Ox 98.2 F 95 H 19 109/69 98 08/22/17 18:10 08/22/17 18:10 08/22/17 18:10 08/22/17 18:10 08/22/17 18:10 - Physical Exam General Appearance: Yes: Appropriately Dressed. No: Apparent Distress HEENT: positive: Normal ENT Inspection Neck: positive: Trachea midline, Supple Respiratory/Chest: positive: Lungs Clear, Normal Breath Sounds. negative: Respiratory Distress, Accessory Muscle Use Cardiovascular: positive: Regular Rhythm, Regular Rate, S1, S2. negative: Edema , Murmur Gastrointestinal/Abdominal: positive: Normal Bowel Sounds, Soft. negative: Tender Musculoskeletal: positive: Normal Inspection, CVA Tenderness (R). negative: CVA Tenderness (L) Extremity: positive: Normal Inspection Integumentary: positive: Normal Color, Dry, Warm Neurologic: positive: Alert, Normal Response ED Treatment Course - LABORATORY CBC & Chemistry Diagram: 08/23/17 01:25 08/23/17 01:25 - ADDITIONAL ORDERS Additional order review: 08/23/17 01:25 RBC 4.20 MCV 88.1 MCHC 34.0 RDW 13.4 MPV 7.1 L D Neutrophils % 50.3 Lymphocytes % 29.0 Monocytes % 11.9 H Eosinophils % 8.1 H Basophils % 0.7 - RADIOLOGY Radiology Studies Ordered: Category Date Time Status CHEST PA & LAT [RAD] Stat Radiology 08/23/17 02:10 Completed - Medications Given in the ED: ED Medications Discontinued Medications Generic Name Dose Route Start Last Admin Trade Name Freq PRN Reason Stop Dose Admin Aspirin 325 mg 08/22/17 22:53 08/23/17 01:28 Asa - PO 08/22/17 22:54 325 mg ONCE ONE Administration Medical Decision Making - Medical Decision Making 08/22/17 22:55 A/P: 37-year-old male with history of MS and polysubstance abuse with left-sided chest pain and right flank pain starting at 3 PM Chest pain is reproducible over left pectoral Lungs clear to auscultation bilaterally RRR. S1 and S2 present. No murmur, rub or gallop noted. Abdomen with epigastric tenderness Right CVA tenderness Physical exam chest pain is likely musculoskeletal. I will send labs including cardiac profile to rule out ACS. Urinalysis to rule out kidney stone or pyelonephritis. Pyelonephritis is less likely given patient is afebrile presently. EKG, chest x-ray, aspirin 325 mg orally once EKG is interpreted by Dr. bowen and reviewed by me: Sinus rhythm with rate of 78. Normal intervals noted. 08/23/17 03:16 Chest x-rays read by me: Angles clear. Cardiac silhouette is within normal limits. No focal consolidations or infiltrates or present. No significant changes when compared to study performed 08/18/17. Laboratory testing is benign. Physical exam with reproducible chest pain is likely musculoskeletal in nature and not cardiac. 08/23/17 03:48 UA is negative. I'll discharge the patient home to follow-up with his primary doctor. I discussed the physical exam findings, ancillary test results and final diagnoses with the patient. I answered all of the patient's questions. The patient was satisfied with the care received and felt comfortable with the discharge plan and treatment plan. The patient will call their primary care physician within 24 hours to arrange follow-up and will return to the Emergency Department with any new, persistent or worsening symptoms. *DC/Admit/Observation/Transfer Diagnosis at time of Disposition: Atypical chest pain - Discharge Dispostion Disposition: HOME Condition at time of disposition: Stable Decision to Admit order: No - Referrals - Patient Instructions Printed Discharge Instructions: DI for Atypical Chest Pain Additional Instructions: Stop using drugs. Keep well-hydrated Return to her primary doctor for continued evaluation. Return to emergency department for any concerns. - Post Discharge Activity
--- NOTE | 2017-08-22 23:01 | PDOC ---
*Physical Exam - Vital Signs Last Vital Signs Temp Pulse Resp BP Pulse Ox 98.2 F 95 H 19 109/69 98 08/22/17 18:10 08/22/17 18:10 08/22/17 18:10 08/22/17 18:10 08/22/17 18:10 ED Treatment Course - LABORATORY CBC & Chemistry Diagram: 08/23/17 01:25 08/23/17 01:25 Medical Decision Making - Medical Decision Making 08/22/17 23:00 agree with care from VESNA Delgado *DC/Admit/Observation/Transfer Diagnosis at time of Disposition: Atypical chest pain - Discharge Dispostion Disposition: HOME Condition at time of disposition: Stable - Referrals - Patient Instructions Printed Discharge Instructions: DI for Atypical Chest Pain Additional Instructions: Stop using drugs. Keep well-hydrated Return to her primary doctor for continued evaluation. Return to emergency department for any concerns. - Post Discharge Activity
[2017-08-23] MEDS ORDERED: ASPIRIN 325 MG TABLET ONE (01:25)
[2017-08-23 01:35] LABS: BASO % 0.7 % (0-2.0); EOS % 8.1 % (0-4.5); HEMOGLOBIN 12.6 GM/dL (11.7-16.9); MEAN CELL VOLUME 88.1 fl (80-96); MEAN PLT VOLUME 7.1 fl (7.5-11.1); MONO % 11.9 % (3.8-10.2); NEUT % 50.3 % (42.8-82.8); PLATELET COUNT 275 K/MM3 (134-434); RDW 13.4 % (11.9-15.9); WHITE BLOOD COUNT 5.7 K/mm3 (4.0-10.0)
[2017-08-23 01:48] LABS: INR 1.04 (0.82-1.09); PROTHROMBIN TIME (PATIENT) 11.8 SEC (9.7-13.0)
[2017-08-23 01:58] LABS: ALBUMIN 3.5 g/dl (3.4-5.0); ANION GAP 8 (8-16); BILIRUBIN,TOTAL 0.7 mg/dL (0.2-1.0); BLOOD UREA NITROGEN 16 mg/dL (7-18); CALCIUM 8.8 mg/dL (8.5-10.1); CHLORIDE 105 mmol/L (98-107); CO2 29 mmol/L (21-32); GLUCOSE,RANDOM 87 mg/dL (74-106); LIPASE 92 U/L (73-393); MAGNESIUM 2.1 mg/dL (1.8-2.4); POTASSIUM 4.3 mmol/L (3.5-5.1); SGOT/AST 23 U/L (15-37); SGPT/ALT 41 U/L (12-78); SODIUM 142 mmol/L (136-145)
[2017-08-23 02:01] LABS: ALK PHOS 89 U/L (45-117)
[2017-08-23 03:37] LABS: URINE APPEARANCE CLEAR; URINE BILIRUBIN NEGATIVE (<2.0 mg/dL); URINE COLOR LTYELLOW; URINE GLUCOSE (UA) NEGATIVE (NEGATIVE); URINE KETONE NEGATIVE (NEGATIVE); URINE LEUK ESTERASE NEGATIVE (NEGATIVE); URINE NITRITE NEGATIVE (NEGATIVE); URINE PROTEIN NEGATIVE (NEGATIVE); URINE UROBILINOGEN NEGATIVE mg/dL (0.2-1.0)
--- NOTE | 2017-08-24 11:42 | EKG ---
Test Reason : Blood Pressure : / mmHG Vent. Rate : 078 BPM Atrial Rate : 078 BPM P-R Int : 148 ms QRS Dur : 088 ms QT Int : 404 ms P-R-T Axes : 042 069 019 degrees QTc Int : 460 ms NORMAL SINUS RHYTHM NORMAL ECG WHEN COMPARED WITH ECG OF 22-AUG-2017 18:17, NO SIGNIFICANT CHANGE WAS FOUND Confirmed by ALEN HADDAD MD ([id number]) on 08/24/2017 11:41:57 AM Referred By: Confirmed By:ALEN HADDAD MD
--- NOTE | 2017-09-02 12:15 | EKG ---
Test Reason : Blood Pressure : / mmHG Vent. Rate : 083 BPM Atrial Rate : 083 BPM P-R Int : 136 ms QRS Dur : 088 ms QT Int : 380 ms P-R-T Axes : 059 059 048 degrees QTc Int : 446 ms NORMAL SINUS RHYTHM NORMAL ECG WHEN COMPARED WITH ECG OF 17-AUG-2017 15:16, NO SIGNIFICANT CHANGE WAS FOUND Confirmed by ALEN HADDAD MD ([id number]) on 09/02/2017 12:14:38 PM Referred By: Confirmed By:ALEN HADDAD MD
== END 2017-08-23 07:47 | disposition home or self-care (01) ==
LOC: JER 17:46
DX: R07.89 Other chest pain (principal); G35 Multiple sclerosis; F11.10 Opioid abuse, uncomplicated; F13.10 Sedative, hypnotic or anxiolytic abuse, uncomplicated; F14.10 Cocaine abuse, uncomplicated; F12.10 Cannabis abuse, uncomplicated; Z88.8 Allergy status to other drugs, medicaments and biological substances; Z91.018 Allergy to other foods
CPT/HCPCS: 36415; 71046-TC-FY; 80053; 81003; 82550; 83690; 83735; 84484; 85025; 85610; 93005; 93010; 99281-25

== ENCOUNTER 2018-04-15 10:14 | Inpatient (IN) | payer OTHER ==
[2018-04-15 10:32] VITALS: BMI 23.1
--- NOTE | 2018-04-15 10:42 | HP ---
"COWS - Scale Resting Pulse: 1= RI 81-100 Sweatin= Chills/Flushing Restless Observation: 1= Difficult to Sit Still Pupil Size: 0= Normal to Room Light Bone or Joint Aches: 1= Mild Discomfort Runny Nose/ Eye Tearin= Nasal Congestion GI Upset > 30mins: 2= Nausea/Diarrhea Tremor Observation: 2= Slight Tremor Visible Yawning Observation: 1= 1-2x During Session Anxiety or Irritability: 2=Irritable/Anxious Goose Flesh Skin: 3=Piloerection COWS Score: 15 CIWA Score Nausea/Vomitin Muscle Tremors: 4-Moderate,w/Arms Extend Anxiety: 4-Mod. Anxious/Guarded Agitation: 0-Normal Activity Paroxysmal Sweats: 1-Minimal Palms Moist Orientation: 1-Uncertain about Date Tacttile Disturbances: 1-Very Mild Itch/Numbness Auditory Disturbances: 1-Very Mild Visual Disturbances: 1-Very Mild Sensitivity Headache: 2-Mild CIWA-Ar Total Score: 17 - Admission Criteria [facility]AS[facility] Guidelines: Admission for Medically Managed Detox: Requires at least one of the followin. CIWA greater than 12 2. Seizures within the past 24 hours 3. Delirium tremens within the past 24 hours 4. Hallucinations within the past 24 hours 5. Acute intervention needed for co occurring medical disorder 6. Acute intervention needed for co occurring psychiatric disorder 7. Severe withdrawal that cannot be handled at a lower level of care (continued vomiting, continued diarrhea, abnormal vital signs) requiring intravenous medication and/or fluids 8. Patient presents the following: CIWA greater than 12 Admission Criteria Met: Admission criteria met Admission ROS [facility] Chief Complaint: I'm not a druggie, I'm not one of those shitting druggies, I want help Allergies/Adverse Reactions: Allergies Allergy/AdvReac Type Severity Reaction Status Date / Time acetaminophen [From Tylenol] Allergy Severe Verified 04/15/18 10:59 Fish Containing Products Allergy Severe Swelling Verified 04/15/18 10:59 buprenorphine [From Suboxone] Allergy Intermediate Verified 04/15/18 10:59 naloxone [From Suboxone] Allergy Intermediate Verified 04/15/18 10:59 History of Present Illness: 37 yo gentleman here for detox from opiates, alprazolam, also using cocaine and marijuana. Denies seizures or black outs, denies overdose. States he was on methadone program (110mg) until 3 weeks ago when he was discharged 'for bullshit reasons' and relapsed using. Irritable, did not want to answer some questions. Insists he was never prescribed suboxone despite my noting it [place] - states it wasn't him, that he's allergic (hives). Patient states he has been prescribed xanax since he was 19 years old but started abusing it when he couldn't get it by prescription anymore. The Drug Utilization Report below displays all of the controlled substance prescriptions, if any, that your patient has filled in the last twelve months. The information displayed on this report is compiled from pharmacy submissions to the Department, and accurately reflects the information as submitted by the pharmacies. This report was requested by: Eleanor Joel | Reference #: [id number] Others' Prescriptions Patient Name: Sammy Soliz Date: 1980 Address: [address] [place] [address] Sex: Male Rx Written Rx Dispensed Drug Quantity Days Supply Prescriber Name Payment Method Dispenser 09/02/2017 09/02/2017 suboxone 2 mg-0.5 mg sl film 6 3 Shahida Tang MD [facility] 09/02/2017 09/02/2017 chlordiazepoxide 10 mg capsule 6 3 Shahida Tang MD [facility] 08/30/2017 08/30/2017 chlordiazepoxide 10 mg capsule 6 3 [facility] Exam Limitations: Clinical Condition, Other (irritable) - Ebola screening Have you traveled outside of the country in the last 21 days: No (N) Have you had contact with anyone from an Ebola affected area: No Have you been sick,other than usual withdrawal symptoms: No Do you have a fever: No - Review of Systems Constitutional: Chills, Loss of Appetite, Malaise, Changes in sleep, Weakness EENT: reports: Blurred Vision, Nose Congestion Respiratory: reports: No Symptoms reported Cardiac: reports: No Symptoms Reported GI: reports: Diarrhea, Poor Appetite, Indigestion, Abdominal cramping : reports: Dysuria Musculoskeletal: reports: Back Pain, Muscle Pain Integumentary: reports: No Symptoms Reported Neuro: reports: Headache, Tremors, Weakness Endocrine: reports: No Symptoms Reported Hematology: reports: No Symptoms Reported Psychiatric: reports: Judgement Intact, Mood/Affect Appropiate, Agitated, Anxious, other (restless) Other Systems: Reviewed and Negative Patient History - Patient Medical History Hx Anemia: No Hx Asthma: No Hx Chronic Obstructive Pulmonary Disease (COPD): No Hx Cancer: No Hx Cardiac Disorders: No Hx Congestive Heart Failure: No Hx Hypertension: No Hx Hypercholesterolemia: No Hx Pacemaker: No HX Cerebrovascular Accident: No Hx Seizures: No Hx Dementia: No Hx Diabetes: No Hx Gastrointestinal Disorders: Yes (GERD - not on medication) Hx Liver Disease: No Hx Genitourinary Disorders: No Hx Sexually Transmitted Disorders: No Hx Renal Disease (ESRD): No Hx Thyroid Disease: No Hx Human Immunodeficiency Virus (HIV): No (Negative 2016) Hx Hepatitis C: No Hx Depression: Yes (Wellbutrin, never hospitalized, ) Hx Suicide Attempt: No (Denies suicide attempt and suicidal ideation at this time) Hx Bipolar Disorder: No Hx Schizophrenia: No Other Medical History: multiple sclerosis diagnosed 2016 - no treatment vision changes left eye - Patient Surgical History Past Surgical History: No Hx Neurologic Surgery: No Hx Cataract Extraction: No Hx Cardiac Surgery: No Hx Lung Surgery: No Hx Abdominal Surgery: No Hx Appendectomy: No Hx Cholecystectomy: No Hx Genitourinary Surgery: No Hx Orthopedic Surgery: No Other Surgical History: Reconstructive surgery to face, arm and elbow in 1999, Anesthesia Reaction: No - PPD History Previous Implant?: Yes Documented Results: Positive w/o proof Implanted On Prior R Admission?: No Date: 08/23/17 (cxr normal) PPD to be Administered?: No - Reproductive History Patient is a Female of Child Bearing Age (11 -55 yrs old): No (male) - Smoking Cessation Smoking history: Current every day smoker Have you smoked in the past 12 months: Yes Aproximately how many cigarettes per day: 5 Hx Chewing Tobacco Use: No Initiated information on smoking cessation: Yes 'Breaking Loose' booklet given: 04/15/18 - Substance & Tx. History Hx Alcohol Use: No Hx Substance Use: Yes Substance Use Type: Cocaine, Heroin, Marijuana, Opiates, Tranquilizers Hx Substance Use Treatment: Yes (detox, rehab, methadone (110mg)) - Substances Abused heroin Route: Injection Frequency: Daily Amount used: 1gm Age of first use: 36 Date of Last Use: 04/14/18 alprazolam Route: Oral Frequency: Daily Amount used: 10mg Age of first use: 19 Date of Last Use: 04/14/18 cocaine Route: Smoking Frequency: Daily Amount used: $40 Age of first use: 36 Date of Last Use: 04/14/18 cannabis Route: Smoking Frequency: 3-6 times per week Amount used: 1joint Age of first use: 9 Date of Last Use: 04/14/18 Family Disease History - Family Disease History Family History: Unable to Obtain (adopted) Admission Physical Exam BHS - Vital Signs Vital Signs: Vital Signs - 24 hr 04/15/18 10:30 Temperature 96.8 F L Pulse Rate 87 Respiratory 18 Rate Blood Pressure 133/84 - Physical General Appearance: Yes: Nourished, Appropriately Dressed, Moderate Distress, Tremorous, Irritable, Anxious HEENTM: Yes: Hearing grossly Normal, Normocephalic, Normal Voice, Pharynx Normal Respiratory: Yes: Normal Breath Sounds, No Respiratory Distress Neck: Yes: No masses,lesions,Nodules Breast: Yes: Breast Exam Deferred Cardiology: Yes: Regular Rhythm, Regular Rate Abdominal: Yes: Flat, Soft Genitourinary: Yes: Hesitency Back: Yes: Normal Inspection, Muscle Spasm Musculoskeletal: Yes: full range of Motion, Gait Steady, Back pain, Muscle Pain Extremities: Yes: Normal Inspection, Normal Range of Motion, Non-Tender Neurological: Yes: Alert, Motor Strength 5/5, Normal Mood/Affect, Normal Response Integumentary: Yes: Normal Color, Warm, Track Lucero (no abscess noted, track lucero dorsal aspect of both arms) Lymphatic: Yes: Within Normal Limits - Diagnostic (1) Sedative, hypnotic or anxiolytic dependence with withdrawal, uncomplicated Current Visit: Yes Status: Chronic (2) Opioid dependence with withdrawal Current Visit: Yes Status: Chronic (3) GERD (gastroesophageal reflux disease) Current Visit: Yes Status: Chronic Qualifiers: Esophagitis presence: esophagitis presence not specified Qualified Code(s) : K21.9 - Gastro-esophageal reflux disease without esophagitis (4) Multiple sclerosis Current Visit: Yes Status: Chronic Comment: states 'mild' - no current treatment (5) Nicotine dependence Current Visit: Yes Status: Chronic Qualifiers: Nicotine product type: cigarettes Substance use status: uncomplicated Qualified Code(s): F17.210 - Nicotine dependence, cigarettes, uncomplicated (6) Cocaine dependence Current Visit: Yes Status: Chronic Qualifiers: Substance use status: uncomplicated Qualified Code(s): F14.20 - Cocaine dependence, uncomplicated (7) Cannabis dependence Current Visit: Yes Status: Acute Cleared for Admission S - Detox or Rehab [facility] Level of Care: Medically Managed Detox Regimen/Protocol: Methadone/Valium BHS Breath Alcohol Content Breath Alcohol Content: 0 Urine Drug Screen - Results Drug Screen Negative: No Urine Drug Screen Results: THC-Marijuana, TAMARA-Cocaine, OPI-Opiates, BZO- Benzodiazepines, MTD-Methadone, FEN-Fentanyl Inpatient Rehab Admission - Rehab Decision to Admit Inpatient rehab admission?: No"
[2018-04-15] MEDS ORDERED: LOPERAMIDE HCL 2 MG CAPSULE PO PRN (10:57)
[2018-04-15] MEDS ORDERED: P-EPHED 60MG/TRIPROLIDI 2.5MG TABLET PO PRN (10:57)
[2018-04-15] MEDS ORDERED: guaiFENesin/D-METHORPHAN HB 10 ML UNIT-DOSE CUPS PO PRN (10:57)
[2018-04-15] MEDS ORDERED: MAGNESIUM HYDROX 2400MG/30ML ORAL SUSPENSION 30 ML CUP PO PRN (10:57)
[2018-04-15] MEDS ORDERED: MAGNESIUM CITRATE 300 ML BOTTLE PO PRN (10:57)
[2018-04-15] MEDS ORDERED: NICOTINE POLACRILEX 4 MG GUM BUC PRN (10:57)
[2018-04-15] MEDS ORDERED: MAG HYDROX/AL HYDROX/SIMETH 30 ML UNIT-DOSE CUP PO PRN (10:57)
[2018-04-15] MEDS ORDERED: MENTHOL/PHENOL 1 EACH UD MM PRN (10:57)
[2018-04-15] MEDS ORDERED: METHADONE HCL 10 MG TABLET (FOR DETOX USE ONLY) PO ONE ×2 (12:00→23:00)
[2018-04-15] MEDS ORDERED: diazePAM 5 MG TABLET PO ONE (12:00)
[2018-04-15] MEDS: diazePAM 5 MG TABLET PO SCH ×2 (13:31→22:02)
[2018-04-15] MEDS: CYCLOBENZAPRINE HCL 10 MG TABLET (FP) PO PRN ×2 (13:31→20:04)
[2018-04-15] MEDS: diazePAM 5 MG TABLET PO PRN ×2 (16:55→20:44)
[2018-04-15] MEDS: MELATONIN 5 MG TABLETS PO PRN (22:02)
[2018-04-15] MEDS: THIAMINE HCL 100 MG TABLET (FP) PO SCH (22:02)
[2018-04-15] MEDS: IBUPROFEN 400 MG TABLET (FP) PO PRN (22:05)
[2018-04-16] MEDS: diazePAM 5 MG TABLET PO PRN ×4 (04:56→19:45)
[2018-04-16] MEDS: diazePAM 5 MG TABLET PO SCH ×3 (06:07→22:17)
[2018-04-16] MEDS: CYCLOBENZAPRINE HCL 10 MG TABLET (FP) PO PRN ×3 (09:11→22:20)
[2018-04-16] MEDS: PRENATAL VITAMINS W/ FOLIC ACID TABLET (FP) PO SCH (09:11)
[2018-04-16] MEDS ORDERED: METHADONE HCL 10 MG TABLET (FOR DETOX USE ONLY) PO SCH (10:00)
[2018-04-16 10:39] LABS: HEMATOCRIT 39.5 % (35.4-49); HEMOGLOBIN 13.5 GM/dL (11.7-16.9); MCH 30.7 pg (25.7-33.7); MCHC 34.2 g/dl (32.0-35.9); MEAN CELL VOLUME 89.5 fl (80-96); MEAN PLT VOLUME 7.9 fl (7.5-11.1); PLATELET COUNT 293 K/MM3 (134-434); RBC 4.41 M/mm3 (4.00-5.60); RDW 13.9 % (11.9-15.9); WHITE BLOOD COUNT 4.7 K/mm3 (4.0-10.0)
--- NOTE | 2018-04-16 10:51 | PN ---
[facility] CIWA - CIWA Score Nausea/Vomitin-Mild Nausea/No Vomiting Muscle Tremors: 4-Moderate,w/Arms Extend Anxiety: 4-Mod. Anxious/Guarded Agitation: 4-Moderately Restless Paroxysmal Sweats: 3 Orientation: 0-Oriented Tacttile Disturbances: 0-None Auditory Disturbances: 0-None Visual Disturbances: 0-None Headache: 0-None Present CIWA-Ar Total Score: 16 BHS COWS - Scale Resting Pulse: 1= RI 81-100 Sweatin= Chills/Flushing Restless Observation: 3= Extraneous Movement Pupil Size: 1= Pupils >than Normal Bone or Joint Aches: 2= Severe Diffuse Aches Runny Nose/ Eye Tearin= Runny Nose/Eyes GI Upset > 30mins: 2= Nausea/Diarrhea Tremor Observation of Outstretched Hands: 2= Slight Tremor Visible Yawning Observation: 0= None Anxiety or Irritability: 2=Irritable/Anxious Goose Flesh Skin: 0=Smooth Skin COWS Score: 16 S Progress Note (SOAP) Subjective: Anxious, agitated, chills, sweating, interrupted sleep, feeling depressed ( states he takes wellbutrin 150mg XL TID and seroquel at home and hasn't received it since his admission). Psychiatrist consult already in place. Patient was transferred from due to verbal altercation with 2 other peers. Objective: 04/16/18 11:15 Last Vital Signs Temp Pulse Resp BP Pulse Ox 97 F L 90 18 122/70 04/16/18 07:17 04/16/18 07:17 04/16/18 07:17 04/16/18 07:17 Laboratory Tests 04/16/18 04/16/18 07:35 07:35 WBC 4.7 RBC 4.41 Hgb 13.5 Hct 39.5 MCV 89.5 MCH 30.7 MCHC 34.2 RDW 13.9 Plt Count 293 MPV 7.9 D Sodium 139 Potassium 4.3 Chloride 105 Carbon Dioxide 29 Anion Gap 6 L BUN 12 Creatinine 0.8 Creat Clearance w eGFR > 60 Random Glucose 105 Calcium 8.5 Total Bilirubin 0.2 AST 19 ALT 36 Alkaline Phosphatase 83 Total Protein 6.3 L Albumin 2.9 L Labs reviewed: albumin 2.9 Assessment: 04/16/18 11:16 Withdrawal symptoms Noted with hypoalbuminemia Plan: Continue detox Encouraged PO water hydration Hypoalbuminemia: add ensure 1 cup PO TID
[2018-04-16 11:08] LABS: ALBUMIN 2.9 g/dl (3.4-5.0); ALK PHOS 83 U/L (45-117); ANION GAP 6 MMOL/L (8-16); BILIRUBIN,TOTAL 0.2 mg/dL (0.2-1); BLOOD UREA NITROGEN 12 mg/dL (7-18); CALCIUM 8.5 mg/dL (8.5-10.1); CHLORIDE 105 mmol/L (98-107); CO2 29 mmol/L (21-32); CREATININE 0.8 mg/dL (0.55-1.3); GLUCOSE,RANDOM 105 mg/dL (74-106); POTASSIUM 4.3 mmol/L (3.5-5.1); SGOT/AST 19 U/L (15-37); SGPT/ALT 36 U/L (13-61); SODIUM 139 mmol/L (136-145); TOT PROT 6.3 g/dl (6.4-8.2)
[2018-04-16] MEDS: NICOTINE POLACRILEX 4 MG GUM BUC PRN ×3 (12:36→22:20)
--- NOTE | 2018-04-16 14:21 | CONSULT ---
[facility] Psychiatric Consult - Data Date of interview: 04/16/18 Admission source: [facility] Identifying data: Patient is a 37 y/o mlae single, unemployed, domiciled, living with his parents, no children, no source of income Substance Abuse History: This is his 2nd admision to [facility] for Detox due to opiods, Benzo (Xanax) , cocaine, marijuana dependence. His last Detox treatment @ [facility] was last August. IVDA use heroin daily and street xanax. I need help because I am afraid of dying from that stuff. Refer to addiction counselor note for more detailed history of his drug habit Medical History: Patient was diagnosed with a mild case of Multiple sclerosis in 2016, GERD Psychiatric History: Patient has a history of depressive disorder and medicated with Wellbutrin XL 450 mg po daily and Seroquel 25 mg bid. he attends [facility] he reports compliance with his medication treatment. He tolerates them well with no side effects. He complains of feeling emotional, depressed and sad, with insomnia. He denies prior psychiatric hospitalizations, denies suicide ideation intent or plan. he reports occasional mood swings. Physical/Sexual Abuse/Trauma History: No history of abuse Additional Comment: prior trouble with the law, and incarceration for selling drugs Mental Status Exam - Mental Status Exam Alert and Oriented to: Place, Person Cognitive Function: Good Patient Appearance: Unkempt Mood: Depressed, Sad, Anxious Affect: Appropriate Patient Behavior: Impulsive, Talkative, Cooperative Speech Pattern: Clear Voice Loudness: Mildly Loud Thought Process: Intact Thought Disorder: Not Present Hallucinations: Denies Suicidal Ideation: Denies Homicidal Ideation: Denies Insight/Judgement: Poor Sleep: Difficulty falling asleep Appetite: Fair Muscle strength/Tone: Normal Gait/Station: Normal Psychiatric Findings - Problem List ([place] 1, 2,3) (1) Cannabis dependence Current Visit: Yes Status: Acute (2) Cocaine dependence Current Visit: Yes Status: Chronic Qualifiers: Substance use status: uncomplicated Qualified Code(s): F14.20 - Cocaine dependence, uncomplicated (3) GERD (gastroesophageal reflux disease) Current Visit: Yes Status: Chronic Qualifiers: Esophagitis presence: esophagitis presence not specified Qualified Code(s) : K21.9 - Gastro-esophageal reflux disease without esophagitis (4) Multiple sclerosis Current Visit: Yes Status: Chronic Comment: states 'mild' - no current treatment (5) Sedative, hypnotic or anxiolytic dependence with withdrawal, uncomplicated Current Visit: Yes Status: Chronic (6) Substance induced mood disorder Current Visit: No Status: Acute (7) Substance-induced sleep disorder Current Visit: No Status: Acute (8) Anxiety Current Visit: No Status: Chronic (9) Benzodiazepine dependence Current Visit: No Status: Chronic (10) Depression Current Visit: No Status: Chronic Qualifiers: Depression Type: unspecified Qualified Code(s): F32.9 - Major depressive disorder, single episode, unspecified - Initial Treatment Plan Initial Treatment Plan: Continue Detox protocol. Wellbutrin Xl 150 mg bid. Seroquel 50 mg po qhs. Monitor response
[2018-04-16] MEDS: IBUPROFEN 400 MG TABLET (FP) PO PRN (20:53)
[2018-04-16] MEDS: QUEtiapine FUMARATE 50 MG TABLET PO SCH (22:16)
[2018-04-16] MEDS: THIAMINE HCL 100 MG TABLET (FP) PO SCH (22:18)
[2018-04-17] MEDS: diazePAM 5 MG TABLET PO PRN ×3 (06:22→19:18)
[2018-04-17] MEDS: NICOTINE POLACRILEX 4 MG GUM BUC PRN ×4 (08:58→21:33)
[2018-04-17] MEDS: PRENATAL VITAMINS W/ FOLIC ACID TABLET (FP) PO SCH (10:15)
[2018-04-17] MEDS: METHADONE HCL 5 MG TABLET (FOR DETOX USE ONLY) PO SCH (10:15)
[2018-04-17] MEDS: diazePAM 5 MG TABLET PO SCH ×2 (10:15→21:31)
--- NOTE | 2018-04-17 13:36 | PN ---
[facility] CIWA - CIWA Score Nausea/Vomitin-Mild Nausea/No Vomiting Muscle Tremors: 2 Anxiety: 3 Agitation: 2 Paroxysmal Sweats: 1-Minimal Palms Moist Orientation: 1-Uncertain about Date Tacttile Disturbances: 1-Very Mild Itch/Numbness Auditory Disturbances: 0-None Visual Disturbances: 0-None Headache: 1-Very Mild CIWA-Ar Total Score: 12 S COWS - Scale Resting Pulse: 1= NM 81-100 Sweatin= Chills/Flushing Restless Observation: 0= Sits Still Pupil Size: 0= Normal to Room Light Bone or Joint Aches: 1= Mild Discomfort Runny Nose/ Eye Tearin= Nasal Congestion GI Upset > 30mins: 2= Nausea/Diarrhea Tremor Observation of Outstretched Hands: 1= Tremor [place], Not Seen Yawning Observation: 1= 1-2x During Session Anxiety or Irritability: 2=Irritable/Anxious Goose Flesh Skin: 0=Smooth Skin COWS Score: 10 S Progress Note (SOAP) Subjective: body aches muscle pain anxiety restlessness patient instigating and commenting others patients' feet, manner of walking, etc team approach that avoid instigation focus on chemical detox set goal transition to next level of care patient signed the safety contract with understanding avoid verbal augmentation with peers and staff, avoid racial discreminative language towards patients and staff Objective: 04/17/18 13:44 Vital Signs Temperature 97.8 F 04/17/18 09:13 Pulse Rate 110 H 04/17/18 09:13 Respiratory Rate 18 04/17/18 09:13 Blood Pressure 131/80 04/17/18 09:13 O2 Sat by Pulse Oximetry (%) Laboratory Last Values WBC 4.7 K/mm3 (4.0-10.0) 04/16/18 07:35 RBC 4.41 M/mm3 (4.00-5.60) 04/16/18 07:35 Hgb 13.5 GM/dL (11.7-16.9) 04/16/18 07:35 Hct 39.5 % (35.4-49) 04/16/18 07:35 MCV 89.5 fl (80-96) 04/16/18 07:35 MCH 30.7 pg (25.7-33.7) 04/16/18 07:35 MCHC 34.2 g/dl (32.0-35.9) 04/16/18 07:35 RDW 13.9 % (11.9-15.9) 04/16/18 07:35 Plt Count 293 K/MM3 (134-434) 04/16/18 07:35 MPV 7.9 fl (7.5-11.1) D 04/16/18 07:35 Sodium 139 mmol/L (136-145) 04/16/18 07:35 Potassium 4.3 mmol/L (3.5-5.1) 04/16/18 07:35 Chloride 105 mmol/L (98-107) 04/16/18 07:35 Carbon Dioxide 29 mmol/L (21-32) 04/16/18 07:35 Anion Gap 6 MMOL/L (8-16) L 04/16/18 07:35 BUN 12 mg/dL (7-18) 04/16/18 07:35 Creatinine 0.8 mg/dL (0.55-1.3) 04/16/18 07:35 Creat Clearance w eGFR > 60 (>60) 04/16/18 07:35 Random Glucose 105 mg/dL (74-106) 04/16/18 07:35 Calcium 8.5 mg/dL (8.5-10.1) 04/16/18 07:35 Total Bilirubin 0.2 mg/dL (0.2-1) 04/16/18 07:35 AST 19 U/L (15-37) 04/16/18 07:35 ALT 36 U/L (13-61) 04/16/18 07:35 Alkaline Phosphatase 83 U/L (45-117) 04/16/18 07:35 Total Protein 6.3 g/dl (6.4-8.2) L 04/16/18 07:35 Albumin 2.9 g/dl (3.4-5.0) L 04/16/18 07:35 RPR Titer Nonreactive (NONREACTIVE) 04/16/18 07:35 lab noted patient is alert ambulating on hallway demand discuss all issues out side of his room Assessment: 04/17/18 13:46 benzo and opiate withdrawal sx Plan: continue detox
[2018-04-17] MEDS: QUEtiapine FUMARATE 50 MG TABLET PO SCH (21:30)
[2018-04-17] MEDS: THIAMINE HCL 100 MG TABLET (FP) PO SCH (21:30)
[2018-04-17] MEDS: CYCLOBENZAPRINE HCL 10 MG TABLET (FP) PO PRN (21:30)
[2018-04-18] MEDS: diazePAM 5 MG TABLET PO PRN (05:15)
[2018-04-18] MEDS: diazePAM 5 MG TABLET PO SCH ×2 (10:28→22:12)
[2018-04-18] MEDS: PRENATAL VITAMINS W/ FOLIC ACID TABLET (FP) PO SCH (10:28)
[2018-04-18] MEDS: METHADONE HCL 5 MG TABLET (FOR DETOX USE ONLY) PO SCH (10:28)
[2018-04-18] MEDS ORDERED: diazePAM 5 MG TABLET PO ONE (16:15)
--- NOTE | 2018-04-18 16:22 | PN ---
[facility] Progress Note Note: Psychiatric nurse practitioner note: Call received by RN stating that patient is requesting Wellbutrin 450mg XL. Patient was seen by Dr. Bah and was prescribed wellbutrin 300mg XL. Physician Neonatology able to contact patient's pharmacy's - [address] [place] [address] at [phone]. As per the pharmacist, patient was prescribed wellbutrin 150mg XL in October of 2017 and Wellbutrin 75mg BID on 03/10/18. There are no records of wellbutrin 450mg XL. Wellbutrin 450mg XL will not be ordered at this time.
[2018-04-18] MEDS: IBUPROFEN 400 MG TABLET (FP) PO PRN (17:54)
[2018-04-18] MEDS: NICOTINE POLACRILEX 4 MG GUM BUC PRN ×2 (18:44→22:15)
[2018-04-18] MEDS: CYCLOBENZAPRINE HCL 10 MG TABLET (FP) PO PRN (22:12)
[2018-04-18] MEDS: THIAMINE HCL 100 MG TABLET (FP) PO SCH (22:12)
[2018-04-18] MEDS: QUEtiapine FUMARATE 50 MG TABLET PO SCH (22:12)
[2018-04-18] MEDS: MELATONIN 5 MG TABLETS PO PRN (22:13)
[2018-04-19] MEDS: IBUPROFEN 400 MG TABLET (FP) PO PRN ×2 (05:03→10:10)
[2018-04-19] MEDS ORDERED: diazePAM 5 MG TABLET PO SCH (10:00)
[2018-04-19] MEDS ORDERED: METHADONE HCL 10 MG TABLET (FOR DETOX USE ONLY) PO SCH (10:00)
[2018-04-19] MEDS: PRENATAL VITAMINS W/ FOLIC ACID TABLET (FP) PO SCH (10:07)
[2018-04-19] MEDS: CYCLOBENZAPRINE HCL 10 MG TABLET (FP) PO PRN (10:10)
--- NOTE | 2018-04-19 11:33 | PN ---
[facility] CIWA - CIWA Score Nausea/Vomitin-No Nausea/No Vomiting Muscle Tremors: 1-None Visible, but [place] Anxiety: 2 Agitation: 2 Paroxysmal Sweats: 1-Minimal Palms Moist Orientation: 1-Uncertain about Date Tacttile Disturbances: 0-None Auditory Disturbances: 0-None Visual Disturbances: 0-None Headache: 1-Very Mild CIWA-Ar Total Score: 8 S COWS - Scale Resting Pulse: 2= [place] 101-120 Sweatin= Chills/Flushing Restless Observation: 0= Sits Still Pupil Size: 0= Normal to Room Light Bone or Joint Aches: 1= Mild Discomfort Runny Nose/ Eye Tearin= None GI Upset > 30mins: 0= None Tremor Observation of Outstretched Hands: 1= Tremor [place], Not Seen Yawning Observation: 0= None Anxiety or Irritability: 1=Feels Anxious/Irritable Goose Flesh Skin: 0=Smooth Skin COWS Score: 6 S Progress Note (SOAP) Subjective: anxiety restlessness irritable agitative Objective: 04/19/18 11:32 Vital Signs Temperature 96.8 F L 04/19/18 09:37 Pulse Rate 107 H 04/19/18 09:37 Respiratory Rate 18 04/19/18 09:37 Blood Pressure 134/85 04/19/18 09:37 O2 Sat by Pulse Oximetry (%) Laboratory Last Values WBC 4.7 K/mm3 (4.0-10.0) 04/16/18 07:35 RBC 4.41 M/mm3 (4.00-5.60) 04/16/18 07:35 Hgb 13.5 GM/dL (11.7-16.9) 04/16/18 07:35 Hct 39.5 % (35.4-49) 04/16/18 07:35 MCV 89.5 fl (80-96) 04/16/18 07:35 MCH 30.7 pg (25.7-33.7) 04/16/18 07:35 MCHC 34.2 g/dl (32.0-35.9) 04/16/18 07:35 RDW 13.9 % (11.9-15.9) 04/16/18 07:35 Plt Count 293 K/MM3 (134-434) 04/16/18 07:35 MPV 7.9 fl (7.5-11.1) D 04/16/18 07:35 Sodium 139 mmol/L (136-145) 04/16/18 07:35 Potassium 4.3 mmol/L (3.5-5.1) 04/16/18 07:35 Chloride 105 mmol/L (98-107) 04/16/18 07:35 Carbon Dioxide 29 mmol/L (21-32) 04/16/18 07:35 Anion Gap 6 MMOL/L (8-16) L 04/16/18 07:35 BUN 12 mg/dL (7-18) 04/16/18 07:35 Creatinine 0.8 mg/dL (0.55-1.3) 04/16/18 07:35 Creat Clearance w eGFR > 60 (>60) 04/16/18 07:35 Random Glucose 105 mg/dL (74-106) 04/16/18 07:35 Calcium 8.5 mg/dL (8.5-10.1) 04/16/18 07:35 Total Bilirubin 0.2 mg/dL (0.2-1) 04/16/18 07:35 AST 19 U/L (15-37) 04/16/18 07:35 ALT 36 U/L (13-61) 04/16/18 07:35 Alkaline Phosphatase 83 U/L (45-117) 04/16/18 07:35 Total Protein 6.3 g/dl (6.4-8.2) L 04/16/18 07:35 Albumin 2.9 g/dl (3.4-5.0) L 04/16/18 07:35 RPR Titer Nonreactive (NONREACTIVE) 04/16/18 07:35 lab noted Assessment: 04/19/18 11:32 benzo and opiate withdrawal sx Plan: continue detox
[2018-04-19 13:27] VITALS: BP 126/79; PULSE 103; TEMP 98.1
[2018-04-19] MEDS: NICOTINE POLACRILEX 4 MG GUM BUC PRN (13:40)
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
--- NOTE | 2018-04-19 15:16 | DS ---
[facility] Detox Discharge Summary Admission Date: 04/15/18 Discharge Date: 04/19/18 - History Present History: Opioid Dependence, Sedative Dependence Additional Comments: 37 years old male admitted on 04/15/18 for benzo and opiate withdrawal stabilization feeling better today preferred rehab today team with counselor nurse that [facility] is available for the patient today - Physical Exam Results Vital Signs: Vital Signs Temperature 98.1 F 04/19/18 13:26 Pulse Rate 103 H 04/19/18 13:26 Respiratory Rate 20 04/19/18 13:26 Blood Pressure 126/79 04/19/18 13:26 O2 Sat by Pulse Oximetry (%) Pertinent Admission Physical Exam Findings: benzo and opiate withdrawal sx Laboratory Last Values WBC 4.7 K/mm3 (4.0-10.0) 04/16/18 07:35 RBC 4.41 M/mm3 (4.00-5.60) 04/16/18 07:35 Hgb 13.5 GM/dL (11.7-16.9) 04/16/18 07:35 Hct 39.5 % (35.4-49) 04/16/18 07:35 MCV 89.5 fl (80-96) 04/16/18 07:35 MCH 30.7 pg (25.7-33.7) 04/16/18 07:35 MCHC 34.2 g/dl (32.0-35.9) 04/16/18 07:35 RDW 13.9 % (11.9-15.9) 04/16/18 07:35 Plt Count 293 K/MM3 (134-434) 04/16/18 07:35 MPV 7.9 fl (7.5-11.1) D 04/16/18 07:35 Sodium 139 mmol/L (136-145) 04/16/18 07:35 Potassium 4.3 mmol/L (3.5-5.1) 04/16/18 07:35 Chloride 105 mmol/L (98-107) 04/16/18 07:35 Carbon Dioxide 29 mmol/L (21-32) 04/16/18 07:35 Anion Gap 6 MMOL/L (8-16) L 04/16/18 07:35 BUN 12 mg/dL (7-18) 04/16/18 07:35 Creatinine 0.8 mg/dL (0.55-1.3) 04/16/18 07:35 Creat Clearance w eGFR > 60 (>60) 04/16/18 07:35 Random Glucose 105 mg/dL (74-106) 04/16/18 07:35 Calcium 8.5 mg/dL (8.5-10.1) 04/16/18 07:35 Total Bilirubin 0.2 mg/dL (0.2-1) 04/16/18 07:35 AST 19 U/L (15-37) 04/16/18 07:35 ALT 36 U/L (13-61) 04/16/18 07:35 Alkaline Phosphatase 83 U/L (45-117) 04/16/18 07:35 Total Protein 6.3 g/dl (6.4-8.2) L 04/16/18 07:35 Albumin 2.9 g/dl (3.4-5.0) L 04/16/18 07:35 RPR Titer Nonreactive (NONREACTIVE) 04/16/18 07:35 lab noted - Treatment Hospital Course: Detox Protocol Followed, Detoxed Safely, Responded well, Discharged Condition Good, Rehab Referral Accepted Patient has Accepted a Re[facility] Referral [facility]: [facility] - Medication Discharge Medications: Ambulatory Orders Bupropion HCl [Wellbutrin Xl -] 150 mg PO DAILY 04/15/18 Cyclobenzaprine HCl [Flexeril 10 mg] 10 mg PO TID PRN 04/15/18 Gabapentin [Neurontin -] 300 mg PO Q8H 04/15/18 Quetiapine Fumarate [Seroquel -] 50 mg PO BID 04/15/18 Naloxone HCl [Narcan] 4 mg NS ASDIR PRN #1 spray 04/19/18 - Diagnosis (1) GERD (gastroesophageal reflux disease) Current Visit: Yes Status: Chronic Qualifiers: Esophagitis presence: without esophagitis Qualified Code(s): K21.9 - Gastro -esophageal reflux disease without esophagitis (2) Nicotine dependence Current Visit: Yes Status: Acute Qualifiers: Nicotine product type: cigarettes Substance use status: in withdrawal Qualified Code(s): F17.213 - Nicotine dependence, cigarettes, with withdrawal (3) Opioid dependence with withdrawal Current Visit: Yes Status: Acute (4) Sedative, hypnotic or anxiolytic dependence with withdrawal, uncomplicated Current Visit: Yes Status: Acute (5) Substance induced mood disorder Current Visit: Yes Status: Suspected - AMA Did Patient Leave Against Medical Advice: No
[2018-04-20] MEDS ORDERED: METHADONE HCL 5 MG TABLET (FOR DETOX USE ONLY) PO SCH (06:00)
== END 2018-04-19 15:28 | disposition other institution (70) | DRG 773 ==
LOC: YASAS 10:14 → Y6N 11:12 → Y3N 04-16 09:47
PROVIDERS: ADMIT Surgery; ATTEND Surgery
PROC: HZ2ZZZZ Detoxification Services for Substance Abuse Treatment (ICD-10-PCS; principal; 2018-04-15)
DX: F11.23 Opioid dependence with withdrawal (principal); F13.230 Sedative, hypnotic or anxiolytic dependence with withdrawal, uncomplicated; F14.20 Cocaine dependence, uncomplicated; F12.20 Cannabis dependence, uncomplicated; F19.24 Other psychoactive substance dependence with psychoactive substance-induced mood disorder; F19.282 Other psychoactive substance dependence with psychoactive substance-induced sleep disorder; F63.9 Impulse disorder, unspecified; F32.9 Major depressive disorder, single episode, unspecified; F41.9 Anxiety disorder, unspecified; K21.9 Gastro-esophageal reflux disease without esophagitis; G35 Multiple sclerosis; R77.0 Abnormality of albumin; Z91.013 Allergy to seafood
CPT/HCPCS: 36415; 80053; 85027; 86593

== ENCOUNTER 2018-04-19 15:42 | Inpatient (IN) | payer OTHER ==
--- NOTE | 2018-04-19 15:17 | HP ---
[facility] Rehab Assess/Revision - Admission History Admitted to Rehab from: [facility] [place] Date of Admission to Rehab: -08/02 - Findings Detox History & Physical reviewed: Yes Concur with findings: Yes Comments/Additional Findings: transferred from detox to rehab admission as per protocol Inpatient Rehab Admission - Rehab Decision to Admit Inpatient rehab admission?: Yes - Initial Determination Are CD services needed?: Yes Free of communicable disease: Yes Not in need of hospitalization: Yes - Rehab Admission Criteria Previous failed treatment: Yes Poor recovery environment: Yes Comorbidities: Yes Lacks judgement: No Patient is meeting Inpatient Rehab admission criteria:: Yes
[~2018-04-19 15:42] MED LIST: ACETAMINOPHEN 325 MG TABLET (FP) PO PRN; LOPERAMIDE HCL 2 MG CAPSULE PO PRN; MAG HYDROX/AL HYDROX/SIMETH 30 ML UNIT-DOSE CUP PO PRN; MAGNESIUM CITRATE 300 ML BOTTLE PO PRN; MAGNESIUM HYDROX 2400MG/30ML ORAL SUSPENSION 30 ML CUP PO PRN; NICOTINE 14 MG/24 HOURS TOPICAL PATCH TD PRN; P-EPHED 60MG/TRIPROLIDI 2.5MG TABLET PO PRN; guaiFENesin 200 MG/10 ML 10 ML UNIT-DOSE CUPS PO PRN
[2018-04-19] MEDS: NICOTINE POLACRILEX 2 MG GUM BUC PRN (16:46)
[2018-04-19] MEDS: THIAMINE HCL 100 MG TABLET (FP) PO SCH (21:40)
[2018-04-19] MEDS: QUEtiapine FUMARATE 50 MG TABLET PO SCH (21:40)
[2018-04-19] MEDS: IBUPROFEN 400 MG TABLET (FP) PO PRN (22:45)
[2018-04-20] MEDS ORDERED: CYCLOBENZAPRINE HCL 10 MG TABLET (FP) PO PRN (09:43)
[2018-04-20] MEDS: PRENATAL VITAMINS W/ FOLIC ACID TABLET (FP) PO SCH (09:51)
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
[2018-04-20] MEDS: LIDOCAINE 5% TOPICAL PATCH TP SCH (10:58)
[2018-04-20] MEDS: NICOTINE POLACRILEX 2 MG GUM BUC PRN (14:16)
--- NOTE | 2018-04-20 14:46 | PN ---
Psychiatric Progress Note Vital Signs: Vital Signs Period Temp Pulse Resp BP Sys/Garay Pulse Ox Last 24 Hr 97.7 F-98.0 F 94-103 16-18 122-132/82-85 Date of Session: 04/20/18 Chief Complaint:: Insomnia HPI: Mr Soliz is a 37 years old male with history of depression, opioid, cocaine sedativec and cannabis abuse admitted to on 04/19/18 for inpatient rehabilitation ROS: GERD, MS Current Medications: Active Medications Generic Name Dose Route Start Last Admin Trade Name Freq PRN Reason Stop Dose Admin Al Hydroxide/Mg Hydroxide 30 ml 04/19/18 15:17 Mylanta Oral Suspension - PO Q6H PRN DYSPEPSIA Bupropion HCl 300 mg 04/20/18 10:00 04/20/18 09:50 Wellbutrin Xl - PO 300 mg DAILY ELMER Administration Cyclobenzaprine HCl 10 mg 04/20/18 09:43 Flexeril - PO TID PRN MUSCLE SPASMS Eucalyptus/Menthol/Phenol/Sorbitol 1 each 04/19/18 15:17 Cepastat Lozenge - MM Q4H PRN SORE THROAT Guaifenesin 10 ml 04/19/18 15:17 Robitussin - PO Q6H PRN COUGH Ibuprofen 400 mg 04/19/18 15:17 04/19/18 22:45 Motrin - PO 400 mg Q6H PRN Administration Pain Level 4-6 Lidocaine 1 patch 04/20/18 10:00 04/20/18 10:58 Lidoderm Patch - TP 1 patch DAILY ELMER Administration Loperamide HCl 4 mg 04/19/18 15:17 Imodium - PO Q6H PRN DIARRHEA Magnesium Citrate 300 ml 04/19/18 15:17 Citroma - PO Q48H PRN CONSTIPATION Magnesium Hydroxide 30 ml 04/19/18 15:17 Milk Of Magnesia - PO DAILY PRN CONSTIPATION Melatonin 5 mg 04/19/18 22:00 Melatonin PO HS PRN INSOMNIA Miscellaneous 1 each 04/20/18 22:00 Lidoderm Patch Removal MC DAILY@2200 ELMER Nicotine 14 mg 04/19/18 15:17 Nicoderm Patch - TD DAILY PRN NICOTINE REPLACEMENT RX Nicotine Polacrilex 2 mg 04/19/18 15:17 04/20/18 14:16 Nicorette Gum - BUC 2 mg Q2H PRN Administration NICOTINE REPLACEMENT RX Multivit/Folic Acid/Iron 1 tab 04/20/18 10:00 04/20/18 09:51 Vitamins (Sjr) - PO 1 tab DAILY ELMER Administration Pseudoephedrine/Triprolidine 1 combo 04/19/18 15:17 Actifed - PO TID PRN NASAL CONGESTION Quetiapine Fumarate 50 mg 04/19/18 22:00 04/19/18 21:40 Seroquel - PO 50 mg HS ELMER Administration Thiamine HCl 100 mg 04/19/18 22:00 04/19/18 21:40 Vitamin B1 - PO Not Given HS ELMER Current Side Effect: No Lab tests ordered: Yes Lab tests reviewed: Yes Provider note:: Patient reports sleeping poorly despite taking Seroquel 50 mg po HS. Claims he used to take much higher dose of Seroquel and still he could not sleep. He said he tried Trazadone as well to no avail. Requests to try something new. Discussed with patient hypnotic properties as well as adverse- effect of Belsomra and he agreed to try it Total face to face time:: 15 Mental Status Exam - Mental Status Exam Alert and Oriented to: Time, Place, Person Cognitive Function: Fair Patient Appearance: Well Groomed Mood: Depressed (mildly) Affect: Appropriate Patient Behavior: Cooperative Speech Pattern: Clear Voice Loudness: Normal Thought Process: Intact, Goal Oriented Thought Disorder: Not Present Hallucinations: Denies Suicidal Ideation: Denies Homicidal Ideation: Denies Insight/Judgement: Fair Sleep: Poorly Appetite: Good Muscle strength/Tone: Normal Gait/Station: Normal Psychiatric Treatment Plan - Problem List (1) Depressive disorder Current Visit: No Comment: .According to history. (2) Substance induced mood disorder Current Visit: Yes (3) Substance-induced sleep disorder Current Visit: Yes (4) Opioid dependence Current Visit: Yes (5) Cocaine dependence Current Visit: No Qualifiers: Substance use status: uncomplicated Qualified Code(s): F14.20 - Cocaine dependence, uncomplicated Comment: . (6) Sedative hypnotic or anxiolytic dependence Current Visit: Yes (7) Cannabis dependence Current Visit: No Comment: . (8) Nicotine dependence Current Visit: No Qualifiers: Nicotine product type: cigarettes Substance use status: in withdrawal Qualified Code(s): F17.213 - Nicotine dependence, cigarettes, with withdrawal Comment: . (9) GERD (gastroesophageal reflux disease) Current Visit: No Qualifiers: Esophagitis presence: without esophagitis Qualified Code(s): K21.9 - Gastro -esophageal reflux disease without esophagitis (10) Multiple sclerosis Current Visit: No Comment: states 'mild' - no current treatment Initial treatment plan: 1) Start Belsomra 10 mg po HS. 2) Continue inpatient rehabilitation
[2018-04-20] MEDS: QUEtiapine FUMARATE 50 MG TABLET PO SCH (21:47)
[2018-04-20] MEDS: THIAMINE HCL 100 MG TABLET (FP) PO SCH (21:48)
[2018-04-20] MEDS: LIDOCAINE PATCH REMOVAL MC SCH (21:50)
[2018-04-21] MEDS: LIDOCAINE 5% TOPICAL PATCH TP SCH (09:25)
[2018-04-21] MEDS: IBUPROFEN 400 MG TABLET (FP) PO PRN ×2 (09:26→22:28)
[2018-04-21] MEDS: PRENATAL VITAMINS W/ FOLIC ACID TABLET (FP) PO SCH (11:37)
[2018-04-21] MEDS: CYCLOBENZAPRINE HCL 10 MG TABLET (FP) PO SCH ×2 (14:22→22:25)
[2018-04-21] MEDS: NICOTINE POLACRILEX 2 MG GUM BUC PRN (16:48)
[2018-04-21] MEDS: MENTHOL/PHENOL 1 EACH UD MM PRN (16:50)
[2018-04-21] MEDS: METHYL SALICYLATE/MENTHOL OINT 30 GM TUBE TP SCH (22:25)
[2018-04-21] MEDS: LIDOCAINE PATCH REMOVAL MC SCH (22:27)
[2018-04-21] MEDS: THIAMINE HCL 100 MG TABLET (FP) PO SCH (22:30)
[2018-04-21] MEDS: QUEtiapine FUMARATE 50 MG TABLET PO SCH (22:30)
[2018-04-22] MEDS: CYCLOBENZAPRINE HCL 10 MG TABLET (FP) PO SCH ×3 (07:02→21:46)
[2018-04-22] MEDS: PRENATAL VITAMINS W/ FOLIC ACID TABLET (FP) PO SCH (09:57)
[2018-04-22] MEDS ORDERED: ONDANSETRON *ODT* 4 MG TABLET SL PRN (10:41)
--- NOTE | 2018-04-22 10:44 | PN ---
[facility] Progress Note Note: TC from nurse - patient c/o nausea and withdrawal symptoms - will order zofran and clonidine and evaluate ongoing.
[2018-04-22] MEDS: cloNIDine HCL 0.1 MG TABLET PO PRN (10:56)
[2018-04-22] MEDS: LIDOCAINE 5% TOPICAL PATCH TP SCH (13:53)
[2018-04-22] MEDS: IBUPROFEN 400 MG TABLET (FP) PO PRN (16:28)
--- NOTE | 2018-04-22 18:06 | PN ---
[facility] Progress Note Note: Psychiatry Attending's note : Came to examine this patient as requested. Mr Soliz refused to be seen by psychiatrist. Nursing staff made aware.
[2018-04-22] MEDS: QUEtiapine FUMARATE 50 MG TABLET PO SCH (21:46)
[2018-04-22] MEDS: LIDOCAINE PATCH REMOVAL MC SCH (21:47)
[2018-04-22] MEDS: THIAMINE HCL 100 MG TABLET (FP) PO SCH (21:47)
[2018-04-22] MEDS: METHYL SALICYLATE/MENTHOL OINT 30 GM TUBE TP SCH (21:47)
[2018-04-23] MEDS: CYCLOBENZAPRINE HCL 10 MG TABLET (FP) PO SCH ×3 (07:52→22:28)
[2018-04-23] MEDS: LIDOCAINE 5% TOPICAL PATCH TP SCH (09:53)
[2018-04-23] MEDS: PRENATAL VITAMINS W/ FOLIC ACID TABLET (FP) PO SCH (09:56)
[2018-04-23] MEDS: IBUPROFEN 400 MG TABLET (FP) PO PRN (09:56)
[2018-04-23] MEDS: cloNIDine HCL 0.1 MG TABLET PO PRN (09:56)
[2018-04-23] MEDS: LIDOCAINE PATCH REMOVAL MC SCH (22:27)
[2018-04-23] MEDS: QUEtiapine FUMARATE 50 MG TABLET PO SCH (22:28)
[2018-04-23] MEDS: METHYL SALICYLATE/MENTHOL OINT 30 GM TUBE TP SCH (22:29)
[2018-04-23] MEDS: THIAMINE HCL 100 MG TABLET (FP) PO SCH (22:29)
[2018-04-24] MEDS: CYCLOBENZAPRINE HCL 10 MG TABLET (FP) PO SCH ×3 (07:09→21:37)
[2018-04-24] MEDS: PRENATAL VITAMINS W/ FOLIC ACID TABLET (FP) PO SCH (10:45)
[2018-04-24] MEDS: LIDOCAINE 5% TOPICAL PATCH TP SCH (10:46)
[2018-04-24] MEDS: NICOTINE POLACRILEX 2 MG GUM BUC PRN ×2 (18:55→21:37)
[2018-04-24] MEDS: cloNIDine HCL 0.1 MG TABLET PO PRN (21:37)
[2018-04-24] MEDS: QUEtiapine FUMARATE 50 MG TABLET PO SCH (21:37)
[2018-04-24] MEDS: THIAMINE HCL 100 MG TABLET (FP) PO SCH (21:37)
[2018-04-24] MEDS: LIDOCAINE PATCH REMOVAL MC SCH (21:38)
[2018-04-24] MEDS: METHYL SALICYLATE/MENTHOL OINT 30 GM TUBE TP SCH (21:38)
[2018-04-25] MEDS: CYCLOBENZAPRINE HCL 10 MG TABLET (FP) PO SCH ×3 (07:04→21:56)
[2018-04-25] MEDS: LIDOCAINE 5% TOPICAL PATCH TP SCH (10:13)
[2018-04-25] MEDS: PRENATAL VITAMINS W/ FOLIC ACID TABLET (FP) PO SCH (10:14)
[2018-04-25] MEDS: IBUPROFEN 400 MG TABLET (FP) PO PRN (10:16)
[2018-04-25] MEDS: cloNIDine HCL 0.1 MG TABLET PO PRN (10:16)
[2018-04-25] MEDS: NICOTINE POLACRILEX 2 MG GUM BUC PRN ×2 (10:19→19:23)
[2018-04-25] MEDS: MELATONIN 5 MG TABLETS PO PRN (21:56)
[2018-04-25] MEDS: QUEtiapine FUMARATE 50 MG TABLET PO SCH (21:56)
[2018-04-25] MEDS: METHYL SALICYLATE/MENTHOL OINT 30 GM TUBE TP SCH (21:56)
[2018-04-25] MEDS: LIDOCAINE PATCH REMOVAL MC SCH (22:02)
[2018-04-25] MEDS: THIAMINE HCL 100 MG TABLET (FP) PO SCH (22:03)
[2018-04-26] MEDS: CYCLOBENZAPRINE HCL 10 MG TABLET (FP) PO SCH ×2 (06:51→21:46)
[2018-04-26] MEDS: NICOTINE POLACRILEX 2 MG GUM BUC PRN ×2 (08:34→13:21)
[2018-04-26] MEDS: PRENATAL VITAMINS W/ FOLIC ACID TABLET (FP) PO SCH (10:31)
[2018-04-26] MEDS: LIDOCAINE 5% TOPICAL PATCH TP SCH (10:32)
--- NOTE | 2018-04-26 11:21 | PN ---
S Progress Note Note: PT REQUESTING TO CHANGE FLEXERIL DOSE BECAUSE "I CANNOT GET UP IN THE MORNING TO GET THE MASTER CONTROL OPERATOR DOSE". PT IS ALERT O X 3. OOB AMBULATING ON HALLWAYS. SAW THE PSYCH , DR. QUEZADA RENEWED EMIL FOR C/O INSOMNIA. Vital Signs (72 hours) 04/24/18 04/24/18 04/24/18 00:30 03:30 07:02 Temperature 97.5 F L Pulse Rate 88 Respiratory 18 18 18 Rate Blood Pressure 110/55 L 04/24/18 04/25/18 04/25/18 23:47 00:30 06:59 Temperature Pulse Rate 99 H Respiratory 16 16 Rate Blood Pressure 160/91 04/26/18 04/26/18 04/26/18 00:30 03:30 06:53 Temperature Pulse Rate Respiratory 18 18 18 Rate Blood Pressure NAD PLAN;DECREASE FREQUENCY FLEXERIL 10 MG PO BID DIRECTED.
--- NOTE | 2018-04-26 19:03 | CONSULT ---
[facility] Psychiatric Consult - Data Date of interview: 04/26/18 Admission source: [facility] Identifying data: Patient is a 37 year old single male, without children, domiciled (living with parents) and currently unemployed. This is patient's first admission to rehab at [facility]. Patient admitted to for cocaine, opiate, and benzodiazepine dependence. Substance Abuse History: Smoking Cessation. Smoking history: Current every day smoker. Have you smoked in the past 12 months: Yes. Aproximately how many cigarettes per day: 5. Hx Chewing Tobacco Use: No. Initiated information on smoking cessation: Yes. 'Breaking Loose' booklet given: 04/15/18. - Substance & Tx. History. Hx Alcohol Use: No. Hx Substance Use: Yes. Substance Use Type : Cocaine, Heroin, Marijuana, Opiates, Tranquilizers. Hx Substance Use Treatment: Yes (detox, rehab, methadone (110mg)). - Substances Abused. heroin. Route: Injection. Frequency: Daily. Amount used: 1gm. Age of first use: 36. Date of Last Use: 04/14/18. alprazolam. Route: Oral. Frequency: Daily. Amount used: 10mg. Age of first use: 19. Date of Last Use: 04/14/18. cocaine. Route: Smoking. Frequency: Daily. Amount used: $40. Age of first use: 36. Date of Last Use: 04/14/18. cannabis. Route: Smoking. Frequency: 3-6 times per week. Amount used: 1joint. Age of first use: 9. Date of Last Use: 04/14/18 Medical History: multiple sclerosis diagnosed 2015, GERD Psychiatric History: Patient denies h/o psychiatric hospitalization but was recently in observation in the [facility] at [facility] in March of 2018 after reporting negative thoughts of not wanting to live anymore. Patient was discharged the following day. Mr. Soliz denies outpatient psychiatric care. While incarcerated he was prescribed wellbutrin 450mg XL but did not follow up with an [facility] psychiatrist after his release from senior care. Instead, he asked for refills while in the methadone program at [facility]. Patient is no longer in the methadone program. As per patient he was removed from the program 3 weeks ago. Mr. Soliz denies h/o suicide attempt. At present, Mr. Soliz reports worsening anxiety which occurs in the morning and afternoon. He is also requesting seroquel 50mg be lowered as he does not like how he feels on the morning after taking the seroquel. Physical/Sexual Abuse/Trauma History: denies. Mental Status Exam - Mental Status Exam Alert and Oriented to: Time, Place, Person Cognitive Function: Good Patient Appearance: Well Groomed Mood: Sad Affect: Mood Congruent Patient Behavior: Appropriate, Cooperative Speech Pattern: Appropriate Voice Loudness: Normal Thought Process: Intact, Goal Oriented Thought Disorder: Not Present Hallucinations: Denies Suicidal Ideation: Denies Homicidal Ideation: Denies Insight/Judgement: Poor Sleep: Poorly Appetite: Fair Muscle strength/Tone: Normal Gait/Station: Normal Psychiatric Findings - Problem List ([place] 1, 2,3) (1) Opioid dependence Current Visit: Yes Status: Acute (2) Sedative hypnotic or anxiolytic dependence Current Visit: Yes Status: Acute (3) Substance induced mood disorder Current Visit: Yes Status: Acute (4) Substance-induced sleep disorder Current Visit: Yes Status: Acute (5) Depressive disorder Current Visit: Yes Status: Chronic Comment: .According to history. (6) Cannabis dependence Current Visit: Yes Status: Acute Comment: . (7) Cocaine dependence Current Visit: Yes Status: Chronic Qualifiers: Substance use status: uncomplicated Qualified Code(s): F14.20 - Cocaine dependence, uncomplicated Comment: . - Initial Treatment Plan Initial Treatment Plan: Psychoeducation provided. Detoxification in progress. 1 ) Patient educated on the effects of wellbutrin and was informed that wellbutrin will remain at 300mg XL. Patient in agreement with plan. 2) Seroquel 50mg to be lowered to 25mg qhs. 3) Gabapentin 300mg to be ordered @ 1000 + 1700 to address anxiety. Benefits and side effects discussed. Verbal consent given.
[2018-04-26] MEDS: SUVOREXANT 10 MG TABLET PO PRN (21:45)
[2018-04-26] MEDS: QUEtiapine FUMARATE 25 MG TABLET (FP) PO SCH (21:46)
[2018-04-26] MEDS: IBUPROFEN 400 MG TABLET (FP) PO PRN (21:46)
[2018-04-26] MEDS: THIAMINE HCL 100 MG TABLET (FP) PO SCH (21:46)
[2018-04-26] MEDS: MELATONIN 5 MG TABLETS PO PRN (21:46)
[2018-04-26] MEDS: METHYL SALICYLATE/MENTHOL OINT 30 GM TUBE TP SCH (21:47)
[2018-04-26] MEDS: LIDOCAINE PATCH REMOVAL MC SCH (21:48)
[2018-04-27] MEDS: LIDOCAINE 5% TOPICAL PATCH TP SCH (10:17)
[2018-04-27] MEDS: CYCLOBENZAPRINE HCL 10 MG TABLET (FP) PO SCH ×2 (10:17→21:27)
[2018-04-27] MEDS: PRENATAL VITAMINS W/ FOLIC ACID TABLET (FP) PO SCH (10:17)
[2018-04-27] MEDS: IBUPROFEN 400 MG TABLET (FP) PO PRN ×2 (10:18→16:42)
[2018-04-27] MEDS: GABAPENTIN 300 MG CAPSULE (FP) PO SCH ×2 (10:18→16:40)
[2018-04-27] MEDS: NICOTINE POLACRILEX 2 MG GUM BUC PRN ×2 (16:42→21:30)
[2018-04-27] MEDS: cloNIDine HCL 0.1 MG TABLET PO PRN (21:27)
[2018-04-27] MEDS: THIAMINE HCL 100 MG TABLET (FP) PO SCH (21:27)
[2018-04-27] MEDS: SUVOREXANT 10 MG TABLET PO PRN (21:27)
[2018-04-27] MEDS: QUEtiapine FUMARATE 25 MG TABLET (FP) PO SCH (21:27)
[2018-04-27] MEDS: LIDOCAINE PATCH REMOVAL MC SCH (21:28)
[2018-04-27] MEDS: METHYL SALICYLATE/MENTHOL OINT 30 GM TUBE TP SCH (21:28)
[2018-04-27] MEDS: MENTHOL/PHENOL 1 EACH UD MM PRN (21:29)
[2018-04-28] MEDS: CYCLOBENZAPRINE HCL 10 MG TABLET (FP) PO SCH ×2 (10:25→21:52)
[2018-04-28] MEDS: PRENATAL VITAMINS W/ FOLIC ACID TABLET (FP) PO SCH (10:25)
[2018-04-28] MEDS: LIDOCAINE 5% TOPICAL PATCH TP SCH (10:26)
[2018-04-28] MEDS: IBUPROFEN 400 MG TABLET (FP) PO PRN (10:27)
[2018-04-28] MEDS: GABAPENTIN 300 MG CAPSULE (FP) PO SCH ×2 (10:28→17:21)
[2018-04-28] MEDS: MENTHOL/PHENOL 1 EACH UD MM PRN (17:21)
[2018-04-28] MEDS: NICOTINE POLACRILEX 2 MG GUM BUC PRN (17:50)
[2018-04-28] MEDS: THIAMINE HCL 100 MG TABLET (FP) PO SCH (21:52)
[2018-04-28] MEDS: QUEtiapine FUMARATE 25 MG TABLET (FP) PO SCH (21:52)
[2018-04-28] MEDS: SUVOREXANT 10 MG TABLET PO PRN (21:54)
[2018-04-28] MEDS: METHYL SALICYLATE/MENTHOL OINT 30 GM TUBE TP SCH (22:09)
[2018-04-28] MEDS: LIDOCAINE PATCH REMOVAL MC SCH (22:09)
[2018-04-29] MEDS: NICOTINE POLACRILEX 2 MG GUM BUC PRN ×2 (00:54→21:48)
[2018-04-29] MEDS: IBUPROFEN 400 MG TABLET (FP) PO PRN (07:32)
[2018-04-29] MEDS: CYCLOBENZAPRINE HCL 10 MG TABLET (FP) PO SCH ×2 (10:21→21:47)
[2018-04-29] MEDS: LIDOCAINE 5% TOPICAL PATCH TP SCH (10:21)
[2018-04-29] MEDS: PRENATAL VITAMINS W/ FOLIC ACID TABLET (FP) PO SCH (10:21)
[2018-04-29] MEDS: cloNIDine HCL 0.1 MG TABLET PO PRN ×2 (10:22→21:47)
[2018-04-29] MEDS: GABAPENTIN 300 MG CAPSULE (FP) PO SCH ×2 (10:23→16:57)
[2018-04-29] MEDS: MELATONIN 5 MG TABLETS PO PRN (21:46)
[2018-04-29] MEDS: THIAMINE HCL 100 MG TABLET (FP) PO SCH (21:47)
[2018-04-29] MEDS: QUEtiapine FUMARATE 25 MG TABLET (FP) PO SCH (21:47)
[2018-04-29] MEDS: METHYL SALICYLATE/MENTHOL OINT 30 GM TUBE TP SCH (21:48)
[2018-04-29] MEDS: SUVOREXANT 10 MG TABLET PO PRN (21:48)
[2018-04-29] MEDS: LIDOCAINE PATCH REMOVAL MC SCH (21:49)
[2018-04-30] MEDS: PRENATAL VITAMINS W/ FOLIC ACID TABLET (FP) PO SCH (10:37)
[2018-04-30] MEDS: LIDOCAINE 5% TOPICAL PATCH TP SCH (10:37)
[2018-04-30] MEDS: CYCLOBENZAPRINE HCL 10 MG TABLET (FP) PO SCH ×2 (10:38→21:35)
[2018-04-30] MEDS: GABAPENTIN 300 MG CAPSULE (FP) PO SCH ×2 (10:39→16:49)
[2018-04-30] MEDS: IBUPROFEN 400 MG TABLET (FP) PO PRN (10:39)
[2018-04-30] MEDS: cloNIDine HCL 0.1 MG TABLET PO PRN ×2 (10:40→21:35)
[2018-04-30] MEDS: NICOTINE POLACRILEX 2 MG GUM BUC PRN ×2 (17:25→21:38)
[2018-04-30] MEDS: MELATONIN 5 MG TABLETS PO PRN (21:36)
[2018-04-30] MEDS: LIDOCAINE PATCH REMOVAL MC SCH (21:37)
[2018-04-30] MEDS: QUEtiapine FUMARATE 25 MG TABLET (FP) PO SCH (21:44)
[2018-04-30] MEDS: METHYL SALICYLATE/MENTHOL OINT 30 GM TUBE TP SCH (21:44)
[2018-04-30] MEDS: THIAMINE HCL 100 MG TABLET (FP) PO SCH (21:44)
[2018-05-01] MEDS ORDERED: SUVOREXANT 10 MG TABLET PO ONE (00:45)
[2018-05-01] MEDS: IBUPROFEN 400 MG TABLET (FP) PO PRN (06:40)
[2018-05-01] MEDS: NICOTINE POLACRILEX 2 MG GUM BUC PRN (06:41)
[2018-05-01] MEDS: CYCLOBENZAPRINE HCL 10 MG TABLET (FP) PO SCH ×2 (10:37→21:42)
[2018-05-01] MEDS: PRENATAL VITAMINS W/ FOLIC ACID TABLET (FP) PO SCH (10:37)
[2018-05-01] MEDS: LIDOCAINE 5% TOPICAL PATCH TP SCH (10:37)
[2018-05-01] MEDS: GABAPENTIN 300 MG CAPSULE (FP) PO SCH ×2 (10:38→17:43)
[2018-05-01] MEDS: QUEtiapine FUMARATE 25 MG TABLET (FP) PO SCH (21:42)
[2018-05-01] MEDS: METHYL SALICYLATE/MENTHOL OINT 30 GM TUBE TP SCH (21:42)
[2018-05-01] MEDS: THIAMINE HCL 100 MG TABLET (FP) PO SCH (21:42)
[2018-05-01] MEDS: LIDOCAINE PATCH REMOVAL MC SCH (21:42)
[2018-05-01] MEDS: SUVOREXANT 10 MG TABLET PO PRN (21:43)
--- NOTE | 2018-05-02 10:03 | PN ---
[facility] Progress Note Note: Patient will be discharged tomorrow. Scripts for Seroquel 50 mg po BID abd Wellbutrin XL 300 mg po daily will be electronically transmitted to [facility] at [address] [place] [address]
[2018-05-02] MEDS: LIDOCAINE 5% TOPICAL PATCH TP SCH (10:46)
[2018-05-02] MEDS: CYCLOBENZAPRINE HCL 10 MG TABLET (FP) PO SCH ×2 (10:46→21:50)
[2018-05-02] MEDS: IBUPROFEN 400 MG TABLET (FP) PO PRN (10:47)
[2018-05-02] MEDS: GABAPENTIN 300 MG CAPSULE (FP) PO SCH ×2 (10:47→17:27)
[2018-05-02] MEDS: PRENATAL VITAMINS W/ FOLIC ACID TABLET (FP) PO SCH (10:49)
[2018-05-02] MEDS: QUEtiapine FUMARATE 25 MG TABLET (FP) PO SCH (21:49)
[2018-05-02] MEDS: METHYL SALICYLATE/MENTHOL OINT 30 GM TUBE TP SCH (21:49)
[2018-05-02] MEDS: cloNIDine HCL 0.1 MG TABLET PO PRN (21:50)
[2018-05-02] MEDS: SUVOREXANT 10 MG TABLET PO PRN (21:51)
[2018-05-02] MEDS: THIAMINE HCL 100 MG TABLET (FP) PO SCH (21:51)
[2018-05-02] MEDS: LIDOCAINE PATCH REMOVAL MC SCH (21:51)
[2018-05-03 06:39] VITALS: BP 110/80; PULSE 99; TEMP 97.6
--- NOTE | 2018-05-03 09:47 | PN ---
[facility] Progress Note Note: PT COMPLETED REHAB AND DISCHARGED TODAY. PT MET WITH HIS COUNSELOR AND WAS REFERRED TO OPD AT [facility] ON [address], [place] AND SUBSEQUENTLY TO FOLLOW UP WITH [facility] ON [address] [place] [address]. PT REPORTS HE CURRENTLY HAS PRIMARY CARE WITH [facility] AT [place], [place], BUT NO PMD AT MOMENT SINCE HIS PMD RETIRED BUT WILL FIND ANOTHER ONE AT SAME LOCATION. PT IS ALERT O X 3. DENIES S/H/I. INSTRUCTED TO ELECTRICIAN SHOP HIS COURTESY RX NARCAN SPRAY FROM HIS PHARMACY AFTER DISCHARGE. Home Medications Medication Instructions Recorded Cyclobenzaprine HCl [Flexeril 10 10 mg PO TID PRN 04/15/18 mg] Gabapentin [Neurontin -] 300 mg PO Q8H 04/15/18 Naloxone HCl [Narcan] 4 mg NS ASDIR PRN #1 spray 04/19/18 Bupropion HCl [Wellbutrin Xl -] 150 mg PO DAILY #30 tab.sr.24h 05/02/18 Bupropion HCl [Wellbutrin Xl] 300 mg PO DAILY #30 tab.er.24h 05/02/18 Quetiapine Fumarate [Seroquel -] 50 mg PO BID #60 tablet 05/02/18 Quetiapine Fumarate [Seroquel -] 50 mg PO BID #60 tablet 05/02/18 Vital Signs (72 hours) 04/30/18 05/01/18 05/01/18 21:00 03:30 07:21 Temperature 97.3 F L Pulse Rate 98 H 82 Respiratory 18 18 18 Rate Blood Pressure 137/71 141/71 05/02/18 05/02/18 05/02/18 00:30 03:30 06:51 Temperature 97.7 F Pulse Rate 78 Respiratory 18 18 16 Rate Blood Pressure 137/69 05/03/18 05/03/18 05/03/18 00:30 03:30 06:38 Temperature 97.6 F Pulse Rate 99 H Respiratory 18 18 18 Rate Blood Pressure 110/80 NAD MEDICALLY STABLE PLAN:FOLLOW UP WITH CD AFTERCARE RECOMMENDED ABOVE ON 05/08/18 AT 11:00 AT [facility] AND ON 05/04/18 AT 11:00 AT [facility]. FOLLOW UP WITH PRIMARY CARE WITH [facility] WITHIN 1 WEEK AFTER DISCHARGE. GO TO THE NEAREST ER IF IN A MEDICAL EMERGENCY SITUATION.
[2018-05-03] MEDS: PRENATAL VITAMINS W/ FOLIC ACID TABLET (FP) PO SCH (10:16)
[2018-05-03] MEDS: CYCLOBENZAPRINE HCL 10 MG TABLET (FP) PO SCH (10:16)
[2018-05-03] MEDS: GABAPENTIN 300 MG CAPSULE (FP) PO SCH (10:17)
[2018-05-03] MEDS: LIDOCAINE 5% TOPICAL PATCH TP SCH (10:18)
== END 2018-05-03 11:25 | disposition home or self-care (01) | DRG 772 ==
LOC: YASAS 15:42 → Y5N 15:43
PROVIDERS: ADMIT Neuromusculoskeletal Medicine & OMM; ATTEND Neuromusculoskeletal Medicine & OMM
PROC: HZ42ZZZ Group Counseling for Substance Abuse Treatment, Cognitive-Behavioral (ICD-10-PCS; principal; 2018-04-19)
DX: F11.20 Opioid dependence, uncomplicated (principal); F13.20 Sedative, hypnotic or anxiolytic dependence, uncomplicated; F14.20 Cocaine dependence, uncomplicated; F12.20 Cannabis dependence, uncomplicated; F17.213 Nicotine dependence, cigarettes, with withdrawal; F19.282 Other psychoactive substance dependence with psychoactive substance-induced sleep disorder; F19.24 Other psychoactive substance dependence with psychoactive substance-induced mood disorder; F32.9 Major depressive disorder, single episode, unspecified; K21.9 Gastro-esophageal reflux disease without esophagitis; G35 Multiple sclerosis; M62.838 Other muscle spasm
CPT/HCPCS: J0735; Q0162

== ENCOUNTER 2018-08-30 14:03 | Inpatient (IN) | payer OTHER ==
[2018-08-30 15:04] VITALS: BMI 23.0
--- NOTE | 2018-08-30 17:22 | HP ---
COWS - Scale Resting Pulse: 1= [place] 81-100 Sweatin=Flushed/Facial Moisture Restless Observation: 1= Difficult to Sit Still Pupil Size: 2= Moderately Dilated Bone or Joint Aches: 2= Severe Diffuse Aches Runny Nose/ Eye Tearin= Runny Nose/Eyes GI Upset > 30mins: 1= Stomach Cramp Tremor Observation: 2= Slight Tremor Visible Yawning Observation: 1= 1-2x During Session Anxiety or Irritability: 4=Extreme Anxiety Goose Flesh Skin: 3=Piloerection COWS Score: 21 CIWA Score Nausea/Vomitin-Mild Nausea/No Vomiting Muscle Tremors: 4-Moderate,w/Arms Extend Anxiety: 5 Agitation: 5 Paroxysmal Sweats: 3 Orientation: 0-Oriented Tacttile Disturbances: 0-None Auditory Disturbances: 0-None Visual Disturbances: 0-None Headache: 2-Mild CIWA-Ar Total Score: 20 - Admission Criteria OASAS Guidelines: Admission for Medically Managed Detox: Requires at least one of the followin. CIWA greater than 12 2. Seizures within the past 24 hours 3. Delirium tremens within the past 24 hours 4. Hallucinations within the past 24 hours 5. Acute intervention needed for co occurring medical disorder 6. Acute intervention needed for co occurring psychiatric disorder 7. Severe withdrawal that cannot be handled at a lower level of care (continued vomiting, continued diarrhea, abnormal vital signs) requiring intravenous medication and/or fluids 8. Patient presents the following: CIWA greater than 12 Admission Criteria Met: Admission criteria met Admission [facility] Chief Complaint: I WANNA GET THIS OVER WITH Allergies/Adverse Reactions: Allergies Allergy/AdvReac Type Severity Reaction Status Date / Time acetaminophen [From Tylenol] Allergy Severe Verified 08/30/18 14:56 Fish Containing Products Allergy Severe Swelling Verified 08/30/18 14:56 buprenorphine [From Suboxone] Allergy Intermediate Verified 08/30/18 14:56 naloxone [From Suboxone] Allergy Intermediate Verified 08/30/18 14:56 Exam Limitations: No Limitations - Ebola screening Have you traveled outside of the country in the last 21 days: No Have you had contact with anyone from an Ebola affected area: No Do you have a fever: No - Review of Systems Constitutional: Chills EENT: reports: No Symptoms Reported Respiratory: reports: No Symptoms reported Cardiac: reports: No Symptoms Reported GI: reports: Nausea, Abdominal cramping : reports: No Symptoms Reported Musculoskeletal: reports: Back Pain, Joint Pain Integumentary: reports: Other (DIFFUSE TRACTS, AND LESIONS) Neuro: reports: Headache Endocrine: reports: No Symptoms Reported Hematology: reports: No Symptoms Reported Psychiatric: reports: Anxious Patient History - Patient Medical History Hx Anemia: No Hx Asthma: No Hx Chronic Obstructive Pulmonary Disease (COPD): No Hx Cancer: No Hx Cardiac Disorders: No Hx Congestive Heart Failure: No Hx Hypertension: No Hx Hypercholesterolemia: No Hx Pacemaker: No HX Cerebrovascular Accident: No Hx Seizures: No Hx Dementia: No Hx Diabetes: No Hx Gastrointestinal Disorders: Yes (GERD - not on medication) Hx Liver Disease: No Hx Genitourinary Disorders: No Hx Sexually Transmitted Disorders: No Hx Renal Disease (ESRD): No Hx Thyroid Disease: No Hx Human Immunodeficiency Virus (HIV): No (Negative 2016) Hx Hepatitis C: No Hx Depression: Yes (Wellbutrin, never hospitalized, ) Hx Suicide Attempt: No (Denies suicide attempt and suicidal ideation at this time) Hx Bipolar Disorder: No Hx Schizophrenia: No - Patient Surgical History Past Surgical History: No Hx Neurologic Surgery: No Hx Cataract Extraction: No Hx Cardiac Surgery: No Hx Lung Surgery: No Hx Breast Surgery: No Hx Breast Biopsy: No Hx Abdominal Surgery: No Hx Appendectomy: No Hx Cholecystectomy: No Hx Genitourinary Surgery: No Hx Orthopedic Surgery: No Other Surgical History: Reconstructive surgery to face, arm and elbow in 1999, Anesthesia Reaction: No - PPD History Date: 08/23/17 - Smoking Cessation Smoking history: Current every day smoker Have you smoked in the past 12 months: Yes Aproximately how many cigarettes per day: 10 Hx Chewing Tobacco Use: No Initiated information on smoking cessation: Yes 'Breaking Loose' booklet given: 08/30/18 - Substances abused Heroin Substance route: Injection Frequency: Daily Amount used: 3-4 BUNDLES Age of first use: 36 Date of last use: 08/29/18 Alcohol Substance route: Oral Frequency: 3-6 times per week Amount used: 4-5PINTS OF [place]KA Age of first use: 12 Date of last use: 08/28/18 Alprazolam (Xanax) Substance route: Oral Frequency: 3-6 times per week Cocaine Substance route: Inhalation Frequency: 1-2 times per week Age of first use: 15 Date of last use: 08/27/18 Family Disease History - Family Disease History Family History: Denies Admission Physical Exam S - Vital Signs Vital Signs: Vital Signs - 24 hr 08/30/18 14:51 Temperature 99.8 F H Pulse Rate 94 H Respiratory 17 Rate Blood Pressure 131/75 - Physical General Appearance: Yes: Disheveled, Irritable, Sweating, Anxious HEENTM: Yes: Hearing grossly Normal, Normocephalic Respiratory: Yes: Chest Non-Tender, Lungs Clear Neck: Yes: No masses,lesions,Nodules Breast: Yes: Breast Exam Deferred Cardiology: Yes: Regular Rhythm, Regular Rate, S1, S2 Abdominal: Yes: Normal Bowel Sounds, Non Tender, Soft Genitourinary: Yes: Within Normal Limits (deferred exam), Other Back: Yes: Within Normal Limits Musculoskeletal: Yes: full range of Motion, Other (diffuse le swelling) Extremities: Yes: Other (DIFFUSE LLE ERYHTEMA AND SWELLING WARMTH REPORTS SP R/ O DVT) Neurological: Yes: animal control officer II-XII NML intact, Fully Oriented, Alert, Motor Strength 5/5 Integumentary: Yes: Normal Color Lymphatic: Yes: Within Normal Limits - Addiitonal Findings: REVIEWED DOCS SP R/O DVT WITH PERSISTENT LE SELLING RO CELLULITIS EMPIRIC BACTRIM - Diagnostic (1) Cannabis dependence Current Visit: Yes Status: Acute Comment: . (2) Mood disorder Current Visit: Yes Status: Acute (3) Opioid dependence with withdrawal Current Visit: Yes Status: Acute (4) Sedative, hypnotic or anxiolytic dependence with withdrawal, uncomplicated Current Visit: Yes Status: Acute Comment: . (5) Benzodiazepine dependence Current Visit: Yes Status: Chronic (6) Cocaine dependence Current Visit: Yes Status: Chronic Qualifiers: Substance use status: uncomplicated Qualified Code(s): F14.20 - Cocaine dependence, uncomplicated Comment: . (7) Leg edema, left Current Visit: Yes Status: Acute (8) Cellulitis Current Visit: Yes Status: Acute Breathalyzer - Breathalyzer Breathalyzer: 0.008 Urine Drug Screen - Test Device Lot number: [id number] Expiration date: 06/13/20 - Control Is test valid?: Yes - Results Drug screen NEGATIVE: No Urine drug screen results: THC-Marijuana, TAMARA-Cocaine, FEN-Fentanyl, MOP-Opiates , MTD-Methadone, BZO-Benzodiazepines, BUP-Suboxone Inpatient Rehab Admission - Rehab Decision to Admit Inpatient rehab admission?: No
[2018-08-30] MEDS ORDERED: MENTHOL/PHENOL 1 EACH UD MM PRN (17:37)
[2018-08-30] MEDS ORDERED: MAG HYDROX/AL HYDROX/SIMETH 30 ML UNIT-DOSE CUP PO PRN (17:37)
[2018-08-30] MEDS ORDERED: MAGNESIUM CITRATE 300 ML BOTTLE PO PRN (17:37)
[2018-08-30] MEDS ORDERED: hydrOXYzine HCL 25 MG TABLET (FP) PO PRN (17:37)
[2018-08-30] MEDS ORDERED: MELATONIN 5 MG TABLETS PO PRN (17:37)
[2018-08-30] MEDS ORDERED: BISMUTH SUBSALICYLATE 524 MG/30 ML UD PO PRN (17:37)
[2018-08-30] MEDS ORDERED: IBUPROFEN 400 MG TABLET (FP) PO PRN ×2 (17:37→19:09)
[2018-08-30] MEDS ORDERED: MAGNESIUM HYDROX 2400MG/30ML ORAL SUSPENSION 30 ML CUP PO PRN (17:37)
[2018-08-30] MEDS ORDERED: METHOCARBAMOL 500 MG TABLET PO PRN (17:37)
[2018-08-30] MEDS ORDERED: METHADONE HCL 10 MG TABLET (FOR DETOX USE ONLY) PO ONE (18:30)
[2018-08-30] MEDS: diazePAM 5 MG TABLET PO PRN (19:09)
[2018-08-30] MEDS ORDERED: IBUPROFEN 600 MG TABLET (FP) PO PRN (19:10)
[2018-08-30] MEDS ORDERED: BENZOCAINE 20 % GEL TUBE MM PRN (21:43)
[2018-08-30] MEDS: SULFAMETHOXAZOLE/TRIMETHOPRIM 800MG/160MG D.S. TABLET PO SCH (22:23)
[2018-08-30] MEDS: THIAMINE HCL 100 MG TABLET (FP) PO SCH (22:24)
[2018-08-30] MEDS: diazePAM 5 MG TABLET PO SCH (22:24)
[2018-08-30] MEDS: cloNIDine HCL 0.1 MG TABLET PO PRN (23:27)
[2018-08-31] MEDS: diazePAM 5 MG TABLET PO PRN ×4 (05:36→19:20)
[2018-08-31] MEDS: diazePAM 5 MG TABLET PO SCH ×3 (06:27→22:17)
[2018-08-31] MEDS ORDERED: NICOTINE POLACRILEX 2 MG GUM BUC PRN (09:19)
--- NOTE | 2018-08-31 09:24 | PN ---
[facility] CIWA - CIWA Score Nausea/Vomitin-No Nausea/No Vomiting Muscle Tremors: 2 Anxiety: 4-Mod. Anxious/Guarded Agitation: 2 Paroxysmal Sweats: 2 Orientation: 0-Oriented Tacttile Disturbances: 1-Very Mild Itch/Numbness Auditory Disturbances: 0-None Visual Disturbances: 0-None Headache: 1-Very Mild CIWA-Ar Total Score: 12 BHS COWS - Scale Resting Pulse: 0= [place] 80 or Below Sweatin= Chills/Flushing Restless Observation: 1= Difficult to Sit Still Pupil Size: 0= Normal to Room Light Bone or Joint Aches: 2= Severe Diffuse Aches Runny Nose/ Eye Tearin= Runny Nose/Eyes GI Upset > 30mins: 0= None Tremor Observation of Outstretched Hands: 1= Tremor [place], Not Seen Yawning Observation: 1= 1-2x During Session Anxiety or Irritability: 2=Irritable/Anxious Goose Flesh Skin: 0=Smooth Skin COWS Score: 10 [facility] Progress Note (SOAP) Subjective: c/o of dental pain, body aches, interrupted sleep, chills and sweats Objective: 08/31/18 09:23 Vital Signs Temperature 97.9 F 08/31/18 07:50 Pulse Rate 86 08/31/18 07:50 Respiratory Rate 18 08/31/18 07:50 Blood Pressure 118/73 08/31/18 07:50 O2 Sat by Pulse Oximetry (%) Labs pending, patient refused labs, patient advised on the need for blood work, patient agree to have blood work done today Assessment: 08/31/18 14:28 AOx3 no distress, full ROM, ambulating in the unit with cane withdrawal sx Plan: increase fluids continue detox
[2018-08-31] MEDS ORDERED: METHADONE HCL 10 MG TABLET (FOR DETOX USE ONLY) ONE (09:53)
[2018-08-31] MEDS ORDERED: METHADONE HCL 5 MG TABLET (FOR DETOX USE ONLY) ONE (09:53)
[2018-08-31] MEDS ORDERED: LIDOCAINE 5% TOPICAL PATCH TP SCH (10:00)
[2018-08-31] MEDS ORDERED: PRENATAL VITAMINS W/ FOLIC ACID TABLET (FP) PO SCH (10:00)
[2018-08-31] MEDS ORDERED: METHADONE (DETOX) 20 MG, METHADONE (DETOX) 5 MG PO ONE (10:00)
[2018-08-31] MEDS: SULFAMETHOXAZOLE/TRIMETHOPRIM 800MG/160MG D.S. TABLET PO SCH ×2 (10:45→22:17)
[2018-08-31] MEDS: METHOCARBAMOL 500 MG TABLET PO SCH ×2 (11:03→22:17)
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
[2018-08-31] MEDS: GABAPENTIN 300 MG CAPSULE (FP) PO SCH ×2 (12:17→22:17)
[2018-08-31 14:29] LABS: BASO % 0.6 % (0-2.0); EOS % 0.7 % (0-4.5); HEMATOCRIT 34.9 % (35.4-49); HEMOGLOBIN 12.1 GM/dL (11.7-16.9); LYMPH % 20.3 % (8-40); MCHC 34.6 g/dl (32.0-35.9); MEAN CELL VOLUME 89.7 fl (80-96); MONO % 11.6 % (3.8-10.2); NEUT % 66.8 % (42.8-82.8); RDW 12.7 % (11.9-15.9); WHITE BLOOD COUNT 7.7 K/mm3 (4.0-10.0)
[2018-08-31 14:36] LABS: BILIRUBIN,TOTAL 1.2 mg/dL (0.2-1); BLOOD UREA NITROGEN 14.8 mg/dL (7-18); POTASSIUM 4.2 mmol/L (3.5-5.1); TOT PROT 6.9 g/dl (6.4-8.2)
[2018-08-31 14:43] LABS: PLATELET COUNT 272 K/MM3 (134-434)
[2018-08-31] MEDS: cloNIDine HCL 0.1 MG TABLET PO PRN (17:58)
[2018-08-31] MEDS ORDERED: COLLOIDAL OATMEAL 1 BAR EACH TP PRN (18:05)
[2018-08-31 21:40] VITALS: BP 122/66; PULSE 84; TEMP 97.9
[2018-08-31] MEDS ORDERED: SUVOREXANT 10 MG TABLET PO PRN (22:00)
[2018-08-31] MEDS ORDERED: LIDOCAINE PATCH REMOVAL MC SCH (22:00)
[2018-08-31] MEDS: THIAMINE HCL 100 MG TABLET (FP) PO SCH (22:17)
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
--- NOTE | 2018-08-31 23:05 | DS ---
[facility] Detox Discharge Summary Admission Date: 08/30/18 Discharge Date: 08/31/18 - History Present History: Alcohol Dependence, Cannabis Dependence, Cocaine Dependence, Opioid Dependence, Sedative Dependence Additional Comments: CLIENT ADMINISTRATIVELY DC FOR DISRUPTIVE THREATENING BEHAVIOR. Pertinent Past History: GERD MS NICOTINE DEP ADHD DEPRESSIVE D/O - Physical Exam Results Vital Signs: Vital Signs Temperature 97.9 F 08/31/18 21:39 Pulse Rate 84 08/31/18 21:39 Respiratory Rate 18 08/31/18 21:39 Blood Pressure 122/66 08/31/18 21:39 O2 Sat by Pulse Oximetry (%) Pertinent Admission Physical Exam Findings: WITHDRAWAL SX'S Laboratory Tests 08/31/18 08/31/18 10:50 10:50 WBC 7.7 RBC 3.90 L Hgb 12.1 Hct 34.9 L MCV 89.7 MCH 31.0 MCHC 34.6 RDW 12.7 Plt Count 272 MPV 8.0 Absolute Neuts (auto) 5.1 Neutrophils % 66.8 D Lymphocytes % 20.3 D Monocytes % 11.6 H Eosinophils % 0.7 D Basophils % 0.6 Nucleated RBC % 0 Sodium 134 L Potassium 4.2 Chloride 99 Carbon Dioxide 29 Anion Gap 6 L BUN 14.8 Creatinine 1.0 Est GFR (CKD-EPI)AfAm 110.17 Est GFR (CKD-EPI)NonAf 95.05 Random Glucose 82 Calcium 8.0 L Total Bilirubin 1.2 H AST 15 ALT 55 Alkaline Phosphatase 96 Total Protein 6.9 Albumin 3.0 L - Treatment Hospital Course: Discharged Condition Good (CLIENT LEFT WITH EMS AND [place] [facility]- IN MEDICALLY STABLE CONDITION) Patient has Accepted a Rehab Referral to: DECLINED - Medication Discharge Medications: Ambulatory Orders Cyclobenzaprine HCl [Flexeril 10 mg] 10 mg PO TID PRN 04/15/18 Gabapentin [Neurontin -] 600 mg PO BID 04/15/18 Naloxone HCl [Narcan] 4 mg NS ASDIR PRN #1 spray 04/19/18 Bupropion HCl [Wellbutrin Xl -] 150 mg PO DAILY #30 tab.sr.24h 05/02/18 Bupropion HCl [Wellbutrin Xl] 300 mg PO DAILY #30 tab.er.24h 05/02/18 Zolpidem Tartrate [Ambien] 5 mg PO HS 08/30/18 Sulfamethoxazole/Trimethoprim [Bactrim Ds Tablet] 1 each PO BID 6 Days #12 tablet 08/31/18 - Diagnosis (1) Alcohol dependence with uncomplicated withdrawal Status: Acute (2) Cannabis dependence Status: Acute (3) Cellulitis Status: Acute Qualifiers: Site of cellulitis: extremity Site of cellulitis of extremity: lower extremity Laterality: left Qualified Code(s): L03.116 - Cellulitis of left lower limb (4) Cocaine dependence Status: Acute Qualifiers: Substance use status: uncomplicated Qualified Code(s): F14.20 - Cocaine dependence, uncomplicated (5) Leg edema, left Status: Acute (6) Mood disorder Status: Acute (7) Opioid dependence with withdrawal Status: Acute (8) Sedative, hypnotic or anxiolytic dependence with withdrawal, uncomplicated Status: Acute (9) Substance induced mood disorder Status: Acute (10) Substance-induced sleep disorder Status: Acute (11) ADHD (attention deficit hyperactivity disorder) Status: Chronic (12) Depressive disorder Status: Chronic (13) GERD (gastroesophageal reflux disease) Status: Chronic Qualifiers: Esophagitis presence: without esophagitis Qualified Code(s): K21.9 - Gastro -esophageal reflux disease without esophagitis (14) Multiple sclerosis Status: Chronic (15) Nicotine dependence Status: Chronic Qualifiers: Nicotine product type: cigarettes Substance use status: in withdrawal Qualified Code(s): F17.213 - Nicotine dependence, cigarettes, with withdrawal - AMA Did Patient Leave Against Medical Advice: No (ADMINISTRATIVE DC)
[2018-09-01] MEDS ORDERED: diazePAM 5 MG TABLET PO SCH (06:00)
[2018-09-01] MEDS ORDERED: METHADONE HCL 10 MG TABLET (FOR DETOX USE ONLY) PO ONE (10:00)
[2018-09-02] MEDS ORDERED: diazePAM 5 MG TABLET PO ONE (06:00)
[2018-09-02] MEDS ORDERED: METHADONE (DETOX) 10 MG, METHADONE (DETOX) 5 MG PO ONE (10:00)
[2018-09-03] MEDS ORDERED: METHADONE HCL 10 MG TABLET (FOR DETOX USE ONLY) PO ONE (10:00)
[2018-09-04] MEDS ORDERED: METHADONE HCL 5 MG TABLET (FOR DETOX USE ONLY) PO ONE (06:00)
== END 2018-08-31 23:01 | disposition short-term general hospital (02) | DRG 773 ==
LOC: YASAS 14:03 → Y6N 18:14
PROVIDERS: ADMIT Surgery; ATTEND Surgery
PROC: HZ2ZZZZ Detoxification Services for Substance Abuse Treatment (ICD-10-PCS; principal; 2018-08-30)
DX: F11.23 Opioid dependence with withdrawal (principal); F10.230 Alcohol dependence with withdrawal, uncomplicated; F13.230 Sedative, hypnotic or anxiolytic dependence with withdrawal, uncomplicated; F14.20 Cocaine dependence, uncomplicated; F12.20 Cannabis dependence, uncomplicated; F17.213 Nicotine dependence, cigarettes, with withdrawal; F19.24 Other psychoactive substance dependence with psychoactive substance-induced mood disorder; F19.282 Other psychoactive substance dependence with psychoactive substance-induced sleep disorder; F90.9 Attention-deficit hyperactivity disorder, unspecified type; G35 Multiple sclerosis; R60.0 Localized edema; K21.9 Gastro-esophageal reflux disease without esophagitis; L03.116 Cellulitis of left lower limb; R45.851 Suicidal ideations
CPT/HCPCS: 36415; 80053; 85025; 86593; J0735

== ENCOUNTER 2018-12-24 14:10 | Inpatient (IN) | payer OTHER ==
[2018-12-24 17:56] VITALS: BMI 23.6
--- NOTE | 2018-12-24 22:15 | HP ---
CIWA Score Nausea/Vomitin Muscle Tremors: 4-Moderate,w/Arms Extend Anxiety: 3 Agitation: 2 Paroxysmal Sweats: 3 Orientation: 1-Uncertain about Date Tacttile Disturbances: 0-None Auditory Disturbances: 0-None Visual Disturbances: 0-None Headache: 3-Moderate CIWA-Ar Total Score: 18 - Admission Criteria OASAS Guidelines: Admission for Medically Managed Detox: Requires at least one of the followin. CIWA greater than 12 2. Seizures within the past 24 hours 3. Delirium tremens within the past 24 hours 4. Hallucinations within the past 24 hours 5. Acute intervention needed for co occurring medical disorder 6. Acute intervention needed for co occurring psychiatric disorder 7. Severe withdrawal that cannot be handled at a lower level of care (continued vomiting, continued diarrhea, abnormal vital signs) requiring intravenous medication and/or fluids 8. Admitting History and Physical - Smoking History Smoking history: Current every day smoker Have you smoked in the past 12 months: Yes Aproximately how many cigarettes per day: 10 - Alcohol/Substance Use Hx Alcohol Use: No Admission ROS [facility] - [facility] Chief Complaint: Xanax withdrawal symptoms, on Methadone therapy Allergies/Adverse Reactions: Allergies Allergy/AdvReac Type Severity Reaction Status Date / Time acetaminophen [From Tylenol] Allergy Severe Verified 12/24/18 17:41 Fish Containing Products Allergy Severe Swelling Verified 12/24/18 17:41 buprenorphine [From Suboxone] Allergy Intermediate Verified 12/24/18 17:41 naloxone [From Suboxone] Allergy Intermediate Verified 12/24/18 17:41 History of Present Illness: 38 years old male with a long history of Xanax dependence is seeking admission to detox. Patient has been admitted multiple times to detox and reports insignificant period of sobriety. He denies suicidal ideation at this time. Patient reports that he is on Methadone 70mg tablet maintenance therapy at [facility] . Dose is yet to be confirmed by the nurse. - Ebola screening Have you traveled outside of the country in the last 21 days: No (N) Have you had contact with anyone from an Ebola affected area: No Do you have a fever: No - Review of Systems Constitutional: Chills, Night Sweats, Weakness EENT: reports: Nose Congestion Respiratory: reports: No Symptoms reported Cardiac: reports: No Symptoms Reported GI: reports: Nausea, Poor Appetite, Poor Fluid Intake : reports: No Symptoms Reported Musculoskeletal: reports: Back Pain, Muscle Weakness Integumentary: reports: Dryness, Flushing Neuro: reports: Headache, Tremors Endocrine: reports: No Symptoms Reported Hematology: reports: No Symptoms Reported Psychiatric: reports: Anxious, Depressed Other Systems: Reviewed and Negative Patient History - Patient Medical History Hx Anemia: No Hx Asthma: No Hx Chronic Obstructive Pulmonary Disease (COPD): No Hx Cancer: No Hx Cardiac Disorders: No Hx Congestive Heart Failure: No Hx Hypertension: No Hx Hypercholesterolemia: No Hx Pacemaker: No HX Cerebrovascular Accident: No Hx Seizures: No Hx Dementia: No Hx Diabetes: No Hx Gastrointestinal Disorders: No Hx Liver Disease: No Hx Genitourinary Disorders: No Hx Sexually Transmitted Disorders: No Hx Renal Disease (ESRD): No Hx Thyroid Disease: No Hx Human Immunodeficiency Virus (HIV): No (Negative 2016) Hx Hepatitis C: No Hx Depression: Yes (Wellbutrin) Hx Suicide Attempt: No Hx Bipolar Disorder: No Hx Schizophrenia: No - Patient Surgical History Past Surgical History: No Hx Neurologic Surgery: No Hx Cataract Extraction: No Hx Cardiac Surgery: No Hx Lung Surgery: No Hx Abdominal Surgery: No Hx Appendectomy: No Hx Cholecystectomy: No Hx Genitourinary Surgery: No Hx Orthopedic Surgery: No Other Surgical History: Reconstructive surgery to face, arm and elbow in 1999, Anesthesia Reaction: No - PPD History Previous Implant?: Yes (PPDF POSITIVE) Date: 08/23/17 PPD to be Administered?: No - Reproductive History Patient is a Female of Child Bearing Age (11 -55 yrs old): No (male) - Smoking Cessation Smoking history: Current every day smoker Have you smoked in the past 12 months: Yes Aproximately how many cigarettes per day: 10 Hx Chewing Tobacco Use: No Initiated information on smoking cessation: Yes 'Breaking Loose' booklet given: 12/24/18 - Substance & Tx. History Hx Alcohol Use: No Hx Substance Use: Yes Substance Use Type: Alcohol, Cocaine, Heroin, Marijuana, Opiates Hx Substance Use Treatment: Yes ([facility]) - Substances abused Heroin Substance route: Injection Frequency: Daily Amount used: 2 BUNDLES Age of first use: 36 Date of last use: 12/23/18 Alcohol Substance route: Oral Frequency: 3-6 times per week Amount used: 3-4 [place] Age of first use: 12 Date of last use: 12/21/18 Alprazolam (Xanax) Substance route: Oral Frequency: Daily Amount used: 8mg Age of first use: 20 Date of last use: 12/23/18 Cocaine Substance route: Inhalation Frequency: 1-3 times last 30 days Amount used: $20 Age of first use: 15 Date of last use: 12/22/18 Admission Physical Exam [facility] - Vital Signs Vital Signs: Vital Signs - 24 hr 12/24/18 17:49 Temperature 97.5 F L Pulse Rate 100 H Respiratory 18 Rate Blood Pressure 131/81 - Physical General Appearance: Yes: Moderate Distress, Tremorous, Irritable, Sweating, Anxious HEENTM: Yes: Within Normal Limits, Nasal Congestion Respiratory: Yes: Lungs Clear, Normal Breath Sounds, No Respiratory Distress Neck: Yes: Supple Breast: Yes: Breast Exam Deferred Cardiology: Yes: Tachycardia Abdominal: Yes: Normal Bowel Sounds Genitourinary: Yes: Within Normal Limits Back: Yes: Normal Inspection Musculoskeletal: Yes: Back pain, Muscle Pain Extremities: Yes: Tremors Neurological: Yes: Within Normal Limits, Normal Response Integumentary: Yes: Dry Lymphatic: Yes: Within Normal Limits Cleared for Admission [facility] - Detox or Rehab [facility] Level of Care: Medically Managed Detox Regimen/Protocol: Valium Claeared for Rehab Admission: No Breathalyzer - Breathalyzer Breathalyzer: 0 Urine Drug Screen - Test Device Lot number: [id number] Expiration date: 09/13/20 - Control Is test valid?: Yes - Results Drug screen NEGATIVE: No Urine drug screen results: THC-Marijuana, TAMARA-Cocaine, MET-Methamphetamine, FEN- Fentanyl, MOP-Opiates, MTD-Methadone, BZO-Benzodiazepines Inpatient Rehab Admission - Rehab Decision to Admit Inpatient rehab admission?: No
[2018-12-24] MEDS ORDERED: hydrOXYzine PAMOATE 25 MG CAPSULE (FP) PO PRN (22:27)
[2018-12-24] MEDS ORDERED: MAGNESIUM CITRATE 300 ML BOTTLE PO PRN (22:27)
[2018-12-24] MEDS ORDERED: diazePAM 5 MG TABLET PO PRN ×2 (22:27→23:36)
[2018-12-24] MEDS ORDERED: BISMUTH SUBSALICYLATE 524 MG/30 ML UD PO PRN (22:27)
[2018-12-24] MEDS ORDERED: MELATONIN 5 MG TABLETS PO PRN (22:27)
[2018-12-24] MEDS ORDERED: MAG HYDROX/AL HYDROX/SIMETH 30 ML UNIT-DOSE CUP PO PRN (22:27)
[2018-12-24] MEDS ORDERED: ACETAMINOPHEN 325 MG TABLET (FP) PO PRN ×2 (22:27)
[2018-12-24] MEDS ORDERED: IBUPROFEN 400 MG TABLET (FP) PO PRN (22:27)
[2018-12-24] MEDS ORDERED: METHOCARBAMOL 500 MG TABLET PO PRN (22:27)
[2018-12-24] MEDS ORDERED: MAGNESIUM HYDROX 2400MG/30ML ORAL SUSPENSION 30 ML CUP PO PRN (22:27)
[2018-12-24] MEDS: diazePAM 5 MG TABLET PO SCH ×3 (23:51→23:52)
[2018-12-25] MEDS: diazePAM 5 MG TABLET PO PRN ×3 (00:53→17:19)
[2018-12-25] MEDS ORDERED: diazePAM 5 MG TABLET PO SCH ×2 (06:00)
[2018-12-25] MEDS: diazePAM 5 MG TABLET PO SCH ×3 (06:12→22:17)
[2018-12-25] MEDS: PRENATAL VITAMINS W/ FOLIC ACID TABLET (FP) PO SCH (09:40)
[2018-12-25] MEDS: NICOTINE 14 MG/24 HOURS TOPICAL PATCH TD SCH (09:40)
--- NOTE | 2018-12-25 10:18 | EKG ---
Test Reason : Blood Pressure : / mmHG Vent. Rate : 078 BPM Atrial Rate : 078 BPM P-R Int : 144 ms QRS Dur : 088 ms QT Int : 380 ms P-R-T Axes : 067 072 055 degrees QTc Int : 433 ms NORMAL SINUS RHYTHM NORMAL ECG WHEN COMPARED WITH ECG OF 23-AUG-2017 01:24, T WAVE VARIATION Confirmed by PATRICIA WREN MD ([id number]) on 12/25/2018 10:18:25 AM Referred By: Confirmed By:PATRICIA WREN MD
[2018-12-25] MEDS ORDERED: METHADONE HCL 10 MG TABLET PO ONE (10:20)
--- NOTE | 2018-12-25 10:28 | PN ---
[facility] CIWA - CIWA Score Nausea/Vomitin Muscle Tremors: 2 Anxiety: 2 Agitation: 3 Paroxysmal Sweats: No Perspiration Orientation: 0-Oriented Tacttile Disturbances: 1-Very Mild Itch/Numbness Auditory Disturbances: 0-None Visual Disturbances: 0-None Headache: 2-Mild CIWA-Ar Total Score: 12 [facility] Progress Note (SOAP) Subjective: alert,irritable,anxious,interrupted sleep,tremor,pain in the body and back Objective: 12/25/18 10:26 Vital Signs Temperature 97.9 F 12/25/18 09:45 Pulse Rate 78 12/25/18 09:45 Respiratory Rate 18 12/25/18 09:45 Blood Pressure 132/72 12/25/18 09:45 O2 Sat by Pulse Oximetry (%) 12/25/18 10:26 labs pending Assessment: 12/25/18 10:26 withdrawal symptom Plan: continue detox valium regimen,unable to verify methadone dose maintenance,will give methadone 20 mgs po today, for verification of methadone in am
[2018-12-25] MEDS: cloNIDine HCL 0.1 MG TABLET PO SCH ×2 (12:20→22:16)
--- NOTE | 2018-12-25 13:43 | CONSULT ---
[facility] Psychiatric Consult - Data Date of interview: 12/25/18 Psychiatric History: Patient was approached several times at bedside. He told music writer:"I cannot talk right now, I'm tired.". Reconsult when patient is appropriate for interview
[2018-12-25] MEDS: THIAMINE HCL 100 MG TABLET (FP) PO SCH (22:17)
[2018-12-26] MEDS ORDERED: diazePAM 5 MG TABLET PO ONE ×2 (06:00)
[2018-12-26] MEDS: diazePAM 5 MG TABLET PO SCH ×2 (06:14→18:13)
[2018-12-26] MEDS ORDERED: METHADONE HCL 10 MG TABLET PO ONE (08:46)
[2018-12-26] MEDS ORDERED: METHADONE 40 MG, METHADONE 30 MG PO ONE (09:10)
[2018-12-26] MEDS ORDERED: METHADONE HCL 10 MG TABLET ONE (09:33)
[2018-12-26] MEDS ORDERED: METHADONE HCL 40 MG DISPERSABLE TABLET ONE (09:34)
[2018-12-26] MEDS: NICOTINE 14 MG/24 HOURS TOPICAL PATCH TD SCH (09:36)
[2018-12-26] MEDS: PRENATAL VITAMINS W/ FOLIC ACID TABLET (FP) PO SCH (09:36)
[2018-12-26] MEDS: cloNIDine HCL 0.1 MG TABLET PO SCH ×2 (09:36→22:40)
[2018-12-26] MEDS: diazePAM 5 MG TABLET PO PRN ×3 (09:39→22:42)
[2018-12-26] MEDS ORDERED: NICOTINE POLACRILEX 4 MG GUM BUC PRN (13:55)
--- NOTE | 2018-12-26 13:57 | PN ---
S CIWA - CIWA Score Nausea/Vomitin-No Nausea/No Vomiting Muscle Tremors: 2 Anxiety: 1-Mildly Anxious Agitation: 2 Paroxysmal Sweats: 1-Minimal Palms Moist Orientation: 0-Oriented Tacttile Disturbances: 0-None Auditory Disturbances: 0-None Visual Disturbances: 0-None Headache: 0-None Present CIWA-Ar Total Score: 6 [facility] Progress Note (SOAP) Subjective: irritable sweats Objective: 12/26/18 13:56 Vital Signs Temperature 96.1 F L 12/26/18 13:05 Pulse Rate 83 12/26/18 13:05 Respiratory Rate 18 12/26/18 13:05 Blood Pressure 120/52 L 12/26/18 13:05 O2 Sat by Pulse Oximetry (%) aaox3 ambulating no acute distress Assessment: 12/26/18 13:56 withdrawals Plan: continue detox d/c in am
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
[2018-12-26] MEDS ORDERED: COLLOIDAL OATMEAL 1 BAR EACH TP ONE (15:36)
[2018-12-26] MEDS: MENTHOL/PHENOL 1 EACH UD MM PRN ×2 (15:59→22:42)
[2018-12-26] MEDS ORDERED: SUVOREXANT 10 MG TABLET PO PRN (22:00)
[2018-12-26] MEDS: GABAPENTIN 300 MG CAPSULE (FP) PO SCH (22:39)
[2018-12-26] MEDS: THIAMINE HCL 100 MG TABLET (FP) PO SCH (22:40)
[2018-12-27] MEDS: diazePAM 5 MG TABLET PO PRN (02:55)
[2018-12-27] MEDS ORDERED: METHADONE HCL 40 MG DISPERSABLE TABLET ONE (04:35)
[2018-12-27] MEDS ORDERED: METHADONE HCL 10 MG TABLET ONE (04:35)
[2018-12-27] MEDS ORDERED: METHADONE 40 MG, METHADONE 30 MG PO SCH (06:00)
[2018-12-27] MEDS ORDERED: METHADONE HCL 40 MG DISPERSABLE TABLET PO SCH (06:00)
[2018-12-27] MEDS ORDERED: diazePAM 5 MG TABLET PO ONE (06:00)
--- NOTE | 2018-12-27 08:20 | PN ---
S Progress Note (SOAP) Subjective: alert,no complaint Objective: 12/27/18 08:26 Vital Signs Temperature 97.7 F 12/27/18 07:23 Pulse Rate 72 12/27/18 07:23 Respiratory Rate 18 12/27/18 07:23 Blood Pressure 115/54 L 12/27/18 07:23 O2 Sat by Pulse Oximetry (%) Assessment: 12/27/18 08:26 detox completed Plan: discharge today,follow up with after care program as arrangement
--- NOTE | 2018-12-27 08:28 | DS ---
[facility] Detox Discharge Summary Admission Date: 12/24/18 Discharge Date: 12/27/18 - History Present History: Alcohol Dependence, Cocaine Dependence, Opioid Dependence, Sedative Dependence, MMTP Additional Comments: follow up with methadone program Pertinent Past History: Vital Signs Temperature 97.7 F 12/27/18 07:23 Pulse Rate 72 12/27/18 07:23 Respiratory Rate 18 12/27/18 07:23 Blood Pressure 115/54 L 12/27/18 07:23 O2 Sat by Pulse Oximetry (%) - Physical Exam Results Vital Signs: Vital Signs Temperature 97.7 F 12/27/18 07:23 Pulse Rate 72 12/27/18 07:23 Respiratory Rate 18 12/27/18 07:23 Blood Pressure 115/54 L 12/27/18 07:23 O2 Sat by Pulse Oximetry (%) Pertinent Admission Physical Exam Findings: withdrawal signs and symptom - Treatment Hospital Course: Detox Protocol Followed, Detoxed Safely, Responded well, Discharged Condition Good Patient has Accepted a Rehab Referral to: declined - Medication Discharge Medications: Ambulatory Orders Cyclobenzaprine HCl [Flexeril 10 mg] 10 mg PO TID PRN 04/15/18 Gabapentin [Neurontin -] 600 mg PO BID 04/15/18 Naloxone HCl [Narcan] 4 mg NS ASDIR PRN #1 spray 04/19/18 Bupropion HCl [Wellbutrin Xl] 300 mg PO DAILY #30 tab.er.24h 05/02/18 Zolpidem Tartrate [Ambien] 5 mg PO HS 08/30/18 Sulfamethoxazole/Trimethoprim [Bactrim Ds Tablet] 1 each PO BID 6 Days #12 tablet 08/31/18 Bupropion HCl [Wellbutrin Xl -] 300 mg PO DAILY 12/24/18 Methadone [Dolophine -] 70 mg PO DAILY 12/24/18 - Diagnosis (1) Sedative hypnotic or anxiolytic dependence Current Visit: No Status: Acute (2) Alcohol dependence with uncomplicated withdrawal Current Visit: No Status: Acute (3) Methadone maintenance therapy patient Current Visit: Yes Status: Acute (4) Cocaine dependence Current Visit: No Status: Acute Qualifiers: Substance use status: uncomplicated Qualified Code(s): F14.20 - Cocaine dependence, uncomplicated (5) Opioid dependence with withdrawal Current Visit: No Status: Acute (6) Nicotine dependence Current Visit: No Status: Chronic Qualifiers: Nicotine product type: cigarettes Substance use status: in withdrawal Qualified Code(s): F17.213 - Nicotine dependence, cigarettes, with withdrawal (7) Sedative, hypnotic or anxiolytic dependence with withdrawal, uncomplicated Current Visit: No Status: Acute - AMA Did Patient Leave Against Medical Advice: No
[2018-12-27] MEDS: NICOTINE 14 MG/24 HOURS TOPICAL PATCH TD SCH (12:05)
[2018-12-27] MEDS: GABAPENTIN 300 MG CAPSULE (FP) PO SCH (12:07)
[2018-12-27] MEDS: PRENATAL VITAMINS W/ FOLIC ACID TABLET (FP) PO SCH (12:08)
[2018-12-27] MEDS: cloNIDine HCL 0.1 MG TABLET PO SCH (12:11)
[2018-12-27 14:09] VITALS: BP 130/59; PULSE 81; TEMP 98.1
== END 2018-12-27 14:54 | disposition home or self-care (01) | DRG 773 ==
LOC: YASAS 14:10 → Y6N 22:30
PROVIDERS: ADMIT Allergy & Immunology; ATTEND Allergy & Immunology
PROC: HZ2ZZZZ Detoxification Services for Substance Abuse Treatment (ICD-10-PCS; principal; 2018-12-24)
DX: F11.23 Opioid dependence with withdrawal (principal); F10.230 Alcohol dependence with withdrawal, uncomplicated; F13.230 Sedative, hypnotic or anxiolytic dependence with withdrawal, uncomplicated; F14.20 Cocaine dependence, uncomplicated; F17.210 Nicotine dependence, cigarettes, uncomplicated; F90.9 Attention-deficit hyperactivity disorder, unspecified type; F32.9 Major depressive disorder, single episode, unspecified; F19.24 Other psychoactive substance dependence with psychoactive substance-induced mood disorder; F19.282 Other psychoactive substance dependence with psychoactive substance-induced sleep disorder; K21.9 Gastro-esophageal reflux disease without esophagitis; G35 Multiple sclerosis; R00.0 Tachycardia, unspecified; Z88.6 Allergy status to analgesic agent; Z91.013 Allergy to seafood
CPT/HCPCS: 93005; 93010; J0735

== ENCOUNTER 2020-06-25 12:59 | Inpatient (IN) | payer OTHER ==
[2020-06-25 14:36] VITALS: BMI 24.7
[2020-06-25] MEDS ORDERED: ACETAMINOPHEN 325 MG TABLET (FP) PO PRN ×2 (18:57)
[2020-06-25] MEDS ORDERED: BISMUTH SUBSALICYLATE 524 MG/30 ML UD PO PRN (18:57)
[2020-06-25] MEDS ORDERED: MAGNESIUM HYDROX 2400MG/30ML ORAL SUSPENSION 30 ML CUP PO PRN (18:57)
[2020-06-25] MEDS ORDERED: LORazepam 1 MG TABLET PO PRN (18:57)
[2020-06-25] MEDS ORDERED: MENTHOL/PHENOL 1 EACH UD MM PRN (18:57)
[2020-06-25] MEDS ORDERED: NICOTINE POLACRILEX 2 MG GUM BUC PRN (18:57)
[2020-06-25] MEDS ORDERED: METHOCARBAMOL 500 MG TABLET PO PRN (18:57)
[2020-06-25] MEDS ORDERED: ONDANSETRON *ODT* 4 MG TABLET SL PRN (18:57)
[2020-06-25] MEDS ORDERED: MAGNESIUM CITRATE 300 ML BOTTLE PO PRN (18:57)
[2020-06-25] MEDS ORDERED: MAG HYDROX/AL HYDROX/SIMETH 30 ML UNIT-DOSE CUP PO PRN (18:57)
[2020-06-25] MEDS ORDERED: hydrOXYzine PAMOATE 25 MG CAPSULE (FP) PO PRN (18:57)
[2020-06-25] MEDS: THIAMINE HCL 100 MG TABLET (FP) PO SCH (22:23)
[2020-06-25] MEDS: LORazepam 2 MG TABLET PO SCH (22:24)
[2020-06-25] MEDS: MELATONIN 5 MG TABLETS PO SCH (22:26)
[2020-06-25] MEDS: IBUPROFEN 400 MG TABLET (FP) PO PRN (22:27)
[2020-06-26] MEDS: LORazepam 2 MG TABLET PO SCH ×4 (05:41→23:07)
[2020-06-26] MEDS ORDERED: METHADONE HCL 10 MG TABLET ONE (09:09)
[2020-06-26] MEDS ORDERED: METHADONE HCL 40 MG DISPERSABLE TABLET ONE (09:11)
[2020-06-26] MEDS ORDERED: METHADONE HCL 10 MG TABLET PO ONE (10:00)
[2020-06-26] MEDS ORDERED: METHADONE 40 MG, METHADONE 20 MG PO ONE (10:00)
[2020-06-26] MEDS: PRENATAL VITAMINS W/ FOLIC ACID TABLET (FP) PO SCH (10:48)
[2020-06-26] MEDS: MELATONIN 5 MG TABLETS PO SCH (23:07)
[2020-06-26] MEDS: THIAMINE HCL 100 MG TABLET (FP) PO SCH (23:08)
[2020-06-27] MEDS ORDERED: METHADONE HCL 40 MG DISPERSABLE TABLET ONE (04:28)
[2020-06-27] MEDS ORDERED: METHADONE HCL 10 MG TABLET ONE (04:28)
[2020-06-27] MEDS ORDERED: METHADONE HCL 10 MG TABLET PO SCH (06:00)
[2020-06-27] MEDS: LORazepam 1 MG TABLET PO SCH ×4 (06:23→22:55)
[2020-06-27] MEDS: METHADONE 40 MG, METHADONE 20 MG PO SCH (06:23)
[2020-06-27] MEDS: PRENATAL VITAMINS W/ FOLIC ACID TABLET (FP) PO SCH (10:38)
[2020-06-27 11:34] LABS: HEMATOCRIT 41.9 % (35.4-49); HEMOGLOBIN 14.2 GM/dL (11.7-16.9); MCH 29.9 pg (25.7-33.7); MCHC 33.8 g/dl (32.0-35.9); MEAN CELL VOLUME 88.3 fl (80-96); MEAN PLT VOLUME 7.9 fl (7.5-11.1); PLATELET COUNT 293 K/MM3 (134-434); RBC 4.75 M/mm3 (4.00-5.60); RDW 14.2 % (11.9-15.9); WHITE BLOOD COUNT 5.7 K/mm3 (4.0-10.0)
[2020-06-27 11:39] LABS: ALBUMIN 3.7 g/dl (3.4-5.0); BLOOD UREA NITROGEN 13.7 mg/dL (7-18); CALCIUM 8.6 mg/dL (8.5-10.1)
[2020-06-27 11:42] LABS: CREATININE 0.9 mg/dL (0.55-1.3)
[2020-06-27 11:44] LABS: BILIRUBIN,TOTAL 0.4 mg/dL (0.2-1); TOT PROT 7.7 g/dl (6.4-8.2)
[2020-06-27] MEDS: THIAMINE HCL 100 MG TABLET (FP) PO SCH (22:55)
[2020-06-27] MEDS: MELATONIN 5 MG TABLETS PO SCH (22:55)
[2020-06-28] MEDS: LORazepam 0.5 MG TABLET PO PRN ×2 (01:34→09:33)
[2020-06-28] MEDS ORDERED: METHADONE HCL 10 MG TABLET ONE (04:40)
[2020-06-28] MEDS ORDERED: METHADONE HCL 40 MG DISPERSABLE TABLET ONE (04:41)
[2020-06-28] MEDS: METHADONE 40 MG, METHADONE 20 MG PO SCH (05:34)
[2020-06-28] MEDS: LORazepam 0.5 MG TABLET PO SCH ×4 (05:35→22:28)
[2020-06-28] MEDS: PRENATAL VITAMINS W/ FOLIC ACID TABLET (FP) PO SCH (09:31)
[2020-06-28] MEDS: IBUPROFEN 400 MG TABLET (FP) PO PRN (09:31)
[2020-06-28 14:09] LABS: SARS-CoV-2 NAA Not Detected (Not Detected)
[2020-06-28] MEDS: THIAMINE HCL 100 MG TABLET (FP) PO SCH (22:28)
[2020-06-28] MEDS: MELATONIN 5 MG TABLETS PO SCH (22:28)
[2020-06-29] MEDS ORDERED: METHADONE HCL 10 MG TABLET ONE (04:51)
[2020-06-29] MEDS ORDERED: METHADONE HCL 40 MG DISPERSABLE TABLET ONE (04:51)
[2020-06-29] MEDS ORDERED: LORazepam 0.5 MG TABLET PO ONE (05:00)
[2020-06-29] MEDS: METHADONE 40 MG, METHADONE 20 MG PO SCH (06:08)
[2020-06-29] MEDS: PRENATAL VITAMINS W/ FOLIC ACID TABLET (FP) PO SCH (09:59)
[2020-06-29 10:35] VITALS: BP 118/80; PULSE 113; TEMP 97.1
[2020-06-29] MEDS ORDERED: MASKS NR ONE (11:19)
== END 2020-06-29 11:24 | disposition home or self-care (01) | DRG 773 ==
LOC: YASAS 12:59 → Y6N 18:35
PROVIDERS: ADMIT Allergy & Immunology; ATTEND Allergy & Immunology
PROC: HZ2ZZZZ Detoxification Services for Substance Abuse Treatment (ICD-10-PCS; principal; 2020-06-25)
DX: F13.230 Sedative, hypnotic or anxiolytic dependence with withdrawal, uncomplicated (principal); F11.20 Opioid dependence, uncomplicated; F14.20 Cocaine dependence, uncomplicated; F17.210 Nicotine dependence, cigarettes, uncomplicated; F19.24 Other psychoactive substance dependence with psychoactive substance-induced mood disorder; F90.0 Attention-deficit hyperactivity disorder, predominantly inattentive type; K21.9 Gastro-esophageal reflux disease without esophagitis; G35 Multiple sclerosis; M54.5 Low back pain; G89.29 Other chronic pain; Z88.8 Allergy status to other drugs, medicaments and biological substances; Z88.6 Allergy status to analgesic agent; Z91.013 Allergy to seafood
CPT/HCPCS: 36415; 80053; 85027; 86780; C9803; U0003; U0005